=== PATIENT | female | born 1970 | race Caucasian/White ===

== ENCOUNTER 2016-08-11 08:45 | Inpatient (IN) | payer OTHER ==
[~2016-08-11] VITALS: Ht 172.7 cm; Wt 64.8 kg
[2016-08-11] VITALS (18 sets, daily range): BP systolic 82–1110; BP diastolic 47–86
--- NOTE | 2016-08-11 09:52 | DIAGNOSTIC IMAGING REPORT ---
PROCEDURE: XR CHEST 1 VIEW INDICATION: SHORTNESS OF BREATH TECHNIQUE: Portable AP view (). COMPARISON: None. FINDINGS: Left basilar rounded opacity suggestive of an artifact. 2.5 cm round opacity in the right cardiophrenic angle. Heart and mediastinum are normal. Thorax is normal. IMPRESSION: 1. 2.5 cm rounded opacity in the right lung base medially which may represent a pulmonary mass or infiltrate. 2. Left basilar opacity suggestive of an artifact.
--- NOTE | 2016-08-11 10:04 | ED ORDER SUMMARY ---
..... Patient: IRWIN DAMON OrderSheet [facility] VisitID: [id number] [address] [place] [address] 45y, F Registration Date/Time: 08/11/2016 ORDER SHEET Weight: 54.4 kg (stated) Allergies: No Known Drug Allergy GENERAL ORDERS: Chest 1V Urgent (09:08/11/2016 [facility] DO) (Ack 9:03 TBergley) (9:31 TBergley) Weld Engineer (Continuous) (:08/11/2016 [facility] DO) (Ack 9:03 TBergley) (9:19 LWhalen R.N.) UA-Culture if indicated Urgent (:08/11/2016 [facility]) (Ack 9:03 TBergley) (11:29 LWhalen R.N.) Cardiac Panel Stat (:08/11/2016 [facility]) (Ack 9:03 TBergley) (9:19 LWhalen R.N.) BNP Urgent (09:08/11/2016 [facility] DO) (Ack 9:03 TBergley) (9:19 LWhalen R.N.) Amylase Urgent (:08/11/2016 [facility]) (Ack 9:03 TBergley) (9:19 LWhalen R.N.) TSH Urgent (:08/11/2016 [facility]) (Ack 9:03 TBergley) (9:19 LWhalen R.N.) Urine Drug Screen Urgent (:08/11/2016 [facility] DO) (Ack 9:03 TBergley) (11:29 LWhalen R.N.) Urine Urgent (:08/11/2016 [facility] DO) (Ack 9:03 TBergley) (11:29 LWhalen R.N.) Acetaminophen Level Urgent (:08/11/2016 [facility]) (Ack 9:03 TBergley) (9:19 LWhalen R.N.) Salicylate Level Urgent (09:08/11/2016 [facility]) (Ack 9:03 TBergley) (9:19 LWhalen R.N.) Pulse oximeter (09:08/11/2016 [facility]) (Ack 9:03 TBergley) (9:19 LWhalen R.N.) EKG - ER Stat (09:08/11/2016 [facility]) (9:02 TBergley) Vitals (09:08/11/2016 [facility]) (Ack 9:03 TBergley) (9:19 LWhalen R.N.) Ethyl Alcohol Urgent (09:29 08/11/2016 [facility]) (Ack 9:31 TBergley) (9:57 LWhalen R.N.) Call (Place call to): (Dr Roe) (09:58 08/11/2016 [facility]) (10:00 TBergley) MEDICATION ORDERS: IV FLUIDS: IV NS : initial bolus 1000 mL (1000 mL/hr), then 500 mL/hr for X2 (NOW) (09:00 08/11/2016 [facility]) (Ack 9:19 LWhalen R.N.) (9:56 LWhalen R.N.) IV NS with Normal Saline 1 Liter, Folic Acid 1 mg/L, Multivitamin Concentrate Intravenous 1 amp/L, Thiamine HCl 100 mg/L: initial bolus 1000 mL (1000 mL/hr), then none - (NOW) (09:23 08/11/2016 [facility]) (9:57 LWhalen R.N.) ORDER SHEET NOTES: [Electronically signed by Justice Napoles DO (12:41 08/11/2016)] [Electronically signed by Fernando Lang R.N. (18:44 08/11/2016)] [Electronically locked/signed by Fernando Lang R.N. (18:44 08/11/2016)]
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
--- NOTE | 2016-08-11 10:04 | ED ORDER SUMMARY ---
..... Patient: IRWIN DAMON OrderSheet [facility] VisitID: [id number] [address] [place] [address] 45y, F Registration Date/Time: 08/11/2016 ORDER SHEET Weight: 54.4 kg (stated) Allergies: No Known Drug Allergy GENERAL ORDERS: Chest 1V Urgent (09:08/11/2016 [facility] DO) (Ack 9:03 TBergley) (9:31 TBergley) Strategies Analyst (Continuous) (:08/11/2016 [facility] DO) (Ack 9:03 TBergley) (9:19 LWhalen R.N.) UA-Culture if indicated Urgent (:08/11/2016 [facility]) (Ack 9:03 TBergley) (11:29 LWhalen R.N.) Cardiac Panel Stat (:08/11/2016 [facility]) (Ack 9:03 TBergley) (9:19 LWhalen R.N.) BNP Urgent (09:08/11/2016 [facility] DO) (Ack 9:03 TBergley) (9:19 LWhalen R.N.) Amylase Urgent (:08/11/2016 [facility] DO) (Ack 9:03 TBergley) (9:19 LWhalen R.N.) TSH Urgent (:08/11/2016 [facility] DO) (Ack 9:03 TBergley) (9:19 LWhalen R.N.) Urine Drug Screen Urgent (:08/11/2016 [facility] DO) (Ack 9:03 TBergley) (11:29 LWhalen R.N.) Urine Urgent (:08/11/2016 [facility] DO) (Ack 9:03 TBergley) (11:29 LWhalen R.N.) Acetaminophen Level Urgent (:08/11/2016 [facility] DO) (Ack 9:03 TBergley) (9:19 LWhalen R.N.) Salicylate Level Urgent (09:08/11/2016 [facility]) (Ack 9:03 TBergley) (9:19 LWhalen R.N.) Pulse oximeter (09:08/11/2016 [facility]) (Ack 9:03 TBergley) (9:19 LWhalen R.N.) EKG - ER Stat (09:08/11/2016 [facility]) (9:02 TBergley) Vitals (09:08/11/2016 [facility]) (Ack 9:03 TBergley) (9:19 LWhalen R.N.) Ethyl Alcohol Urgent (09:29 08/11/2016 [facility]) (Ack 9:31 TBergley) (9:57 LWhalen R.N.) Call (Place call to): (Dr Roe) (09:58 08/11/2016 [facility]) (10:00 TBergley) MEDICATION ORDERS: IV FLUIDS: IV NS : initial bolus 1000 mL (1000 mL/hr), then 500 mL/hr for X2 (NOW) (09:00 08/11/2016 [facility]) (Ack 9:19 LWhalen R.N.) (9:56 LWhalen R.N.) IV NS with Normal Saline 1 Liter, Folic Acid 1 mg/L, Multivitamin Concentrate Intravenous 1 amp/L, Thiamine HCl 100 mg/L: initial bolus 1000 mL (1000 mL/hr), then none - (NOW) (09:23 08/11/2016 [facility]) (9:57 LWhalen R.N.) ORDER SHEET NOTES: [Electronically signed by Justice Napoles DO (12:41 08/11/2016)] [Electronically signed by Fernando Lang R.N. (18:44 08/11/2016)] [Electronically locked/signed by Fernando Lang R.N. (18:44 08/11/2016)]
--- NOTE | 2016-08-11 10:04 | ED NURSING NOTES ---
Clinical Report - Nurses [facility] [address] [place] [address] 08/11/2016 8:44 Patient: IRWIN DAMON TRIAGE Triage time 08:55 Apr 2016. Acuity: LEVEL 2. Chief Complaint: DRUG OVERDOSE and SUICIDE ATTEMPT and INTOXICATION. AVELINA COMA SCORE: Avelina Coma Scale: 11- eyes open spontaneously (4); best verbal response- incoherent speech (2); best motor response- localizes to pain (5). --09:17 Fernando Lang R.N. 08:55 08/11/16. BP: 93/58. HR: 79. RR: 20. O2 saturation: 97%. Temp: 98.0 F. Pain level now 0/10. --09:17 Fernando Lang R.N. Weight: 54.4 kg stated. Height/Length: 67 inches Per Patient. BMI: 18.8. --09:11 Fernando Lang R.N. Medications QUEtiapine Fumarate Oral 50mg , daily. --09:14 Fernando Lang R.N. Amoxicillin Oral 500mg , tid . --09:15 Fernando Lang R.N. Doxycycline Hyclate Oral (Capsule 100 mg) 1 capsule. --09:15 Fernando Lang R.N. Gabapentin Oral 300 mg, daily. --09:16 Fernando Lang R.N. Melatonin Extra Strength Oral. --09:16 Fernando Lang R.N. Allergies No Known Drug Allergy. --18:44 Fernando Lang R.N. History Arrived by EMS, and from home. Historian: patient and family. This occurred last night. The patient had loss of consciousness. She has had depression and suicidal thoughts. Denies having hallucinations. No seizure or vomiting. Treatment MANAGER MONITORING: EMS treatment MANAGER MONITORING verbally communicated. Pulse oximeter applied. cardiac monitor technician applied. Pre-hospital 12-lead EKG. PAST MEDICAL HX: No history of diabetes mellitus or hypertension. No history of previous psychiatric treatment or previous suicide attempts. Last normal menstrual period- 2 weeks ago. SOCIAL HX: Current some days light tobacco smoker (cigarette)- less than 1/2 a pack per day. Heavy alcohol use. Patient is a longstanding alcoholic. Patient smells of ETOH in the emergency department. SELF HARM ASSESSMENT: A self harm assessment was performed. The patient answered "yes" to the question "Have you recently felt down, depressed, or hopeless?", "Have you noticed less interest or pleasure in doing things?", "Do you have thoughts of harming or killing yourself?" and "Are you here because you tried to hurt yourself?" and "no" to the question "Have you ever tried to hurt yourself before today?", "Have you recently had thoughts about harming or killing others?" and "Do you have any dangerous items in your possession?". FALL RISK ASSESSMENT: Fall risk assessment completed. No fall risk identified. NUTRITIONAL RISK ASSESSMENT: The nutritional risk assessment revealed no deficiencies. FUNCTIONAL ASSESSMENT: Functional assessment: no impairments noted. LEARNING NEEDS ASSESSMENT: The learning needs assessment revealed no barriers. ABUSE ASSESSMENT: Abuse assessment: (yes) The patient was asked "Do you feel safe in your home?". SKIN INTEGRITY ASSESSMENT: Skin integrity risk assessment completed. No skin integrity risk identified. --:17 Fernando Lang R.N. PROBLEMS: Abnormal Liver Function Test. Substance Abuse. Immunizations. --:17 Fernando Lang R.N. ADDITIONAL SURGERIES: . --:17 Fernando Lang R.N. Interventions ID band on patient. --:17 Fernando Lang R.N. PHYSICAL ASSESSMENT To room via stretcher. GENERAL / NEURO / PSYCH: Alert. Appears in no acute distress. Patient smells of alcohol. The patient is disoriented to person and time. Altered mental status: lethargic. Patient slow to respond. Responds to simple questions and commands. RESPIRATORY: Respirations not labored. Breath sounds within normal limits. CVS: Normal sinus rhythm noted. Capillary refill less than 2 seconds. GI / : Abdomen soft and nontender. Bowel sounds within normal limits. SKIN: Skin intact. Skin is warm and dry. Skin color is within normal limits. --:18 Fernando Lang R.N. NURSING PROGRESS NOTES Reassurance given. Suicide precautions initiated: a safety sweep of the room is ongoing. Room made safe. Continuous one on one supervision, checks performed every 15 minutes, clothing / valuables removed and placed with the family, meds removed and placed with the family. Patient placed in direct sight of the nurse's station. Call light placed in reach. Side rails up x 2. Bed placed in lowest position. Brakes of bed on. --09:19 Fernando Lang R.N. EKG time: (0900). EKG was ordered, performed by a tech and shown to the ED physician. --09:29 Jade Ace 08:45 08/11/2016 Site #1 started prior to arrival by EMS via IV in the right antecubital space with an 18g angiocath, with aseptic technique and good blood return; one attempt. Saline lock flushed with 10 mL saline. --09:56 Fernando Lang R.N. 08:50 08/11/2016 Started bag #1 1000 mL IV Fluids IV NS (Saline); at 999 mL/hr over 1 hour(s) via site #2 via IV pump. Allergies verified and confirmed 5 rights. IV patency established. IV site checked: no pain, redness, or swelling. IV flushed thoroughly pre- and post-medication administration. --09:56 Fernando Lang R.N. 08:56 08/11/2016 Site #2 started via IV in the left wrist with an 20g angiocath, with aseptic technique and good blood return; one attempt. Blood drawn: rainbow set. Labeled in the presence of the patient and sent to the lab. Saline lock flushed with 10 mL saline. --09:56 Fernando Lang R.N. 09:57 08/11/2016 Started bag #1 1000 mL IV Fluids IV NS (Saline); at 1000 mL/hr over 1 hour(s) via site #2 via IV pump. Allergies verified and confirmed 5 rights. IV patency established. IV site checked: no pain, redness, or swelling. IV flushed thoroughly pre- and post-medication administration. --09:57 Fernando Lang R.N. 09:57 08/11/2016 IV Fluids IV NS Discontinued: bag #1 infused. Total amount infused: 1000 mL. IV patency established. IV site checked: no pain, redness, or swelling. IV flushed thoroughly. --09:57 Fernando Lang R.N. 09:55 08/11/16. BP: 85/58. HR: 75. RR: 14. O2 saturation: 97%. 09:40 08/11/16. BP: 85/58. HR: 74. RR: 15. O2 saturation: 96%. 09:25 08/11/16. BP: 84/58. HR: 76. RR: 17. O2 saturation: 96%. 09:15 08/11/16. BP: 86/60. HR: 78. RR: 27. O2 saturation: 97%. 09:10 08/11/16. BP: 87/57. HR: 75. RR: 16. O2 saturation: 95%. End tidal CO2: 40 mmHg. 08:55 08/11/16. BP: 93/58. HR: 79. RR: 20. O2 saturation: 97%. Temp: 98.0 F. Pain level now 0/10. --10:53 Fernando Lang R.N. 10:10 08/11/16. BP: 84/55. HR: 76. RR: 14. O2 saturation: 96%. --11:15 Fernando Lang R.N. 10:45 08/11/16. BP: 83/57. HR: 86. RR: 18. O2 saturation: 98%. 10:35 08/11/16. BP: 76/54. HR: 87. RR: 18. O2 saturation: 97%. 10:25 08/11/16. BP: 84/58. HR: 78. RR: 18. O2 saturation: 98%. --11:27 Fernando Lang R.N. 11:00 08/11/16. ( report given and patient transferred to ICU.). --11:28 Fernando Lang R.N. DISPOSITION / DISCHARGE Admitted to the Critical Care Unit (306). --11:28 Fernando Lang R.N. 11:03 08/11/2016 Site #[address] upon transfer. Good blood return present. --11:28 Fernando Lang R.N. 11:03 08/11/2016 Site #[address] upon transfer; patent. --11:28 Fernando Lang R.N. 11:03 08/11/2016 IV Fluids IV NS Discontinued: bag #1 infused. Total amount infused: 1000 mL. IV patency established. IV site checked: no pain, redness, or swelling. IV flushed thoroughly. --11:29 Fernando Lang R.N. Departure time: 11:00 Aug 11 2016. --11:29 Fernando Lang R.N. 10:45 08/11/16. BP: 83/57. HR: 86. RR: 18. O2 saturation: 98%. --18:44 Fernando Lang R.N. Locked/Released at 08/11/2016 18:44 by Fernando Lang R.N.
--- NOTE | 2016-08-11 10:04 | ED CLINICAL REPORT ---
Clinical Report - Physicians/Mid Levels [facility] [address] [place] [place] [address] 08/11/2016 8:44 Patient: IRWIN DAMON Time Seen: 08:59. Arrived- By ambulance. Historian- patient, EMS personnel and family. HISTORY OF PRESENT ILLNESS Chief Complaint: DRUG OVERDOSE. This occurred last night. Toxic symptoms present in ED with drowsiness. Multiple drugs ingested- Alcohol- Seroquel. The patient has experienced situational problems. Alcohol consumption recently. The symptoms are described as moderate. Has had suicidal thoughts. No hallucinations. (Pt is currently residing with her parents (after moving back to the area from [place]). She was found by her mother with a decreased level of consciousness. She admits to taking multiple seroquel and drinking alcohol last night in an attempt to commit suicide). Similar symptoms previously: Recent medical care: Not recently seen/assessed. REVIEW OF SYSTEMS Last normal menstrual period was 2 weeks ago. No headache, weakness, chest pain, palpitations or abdominal pain. No vomiting, diarrhea, black stools, numbness or bloody stools. No fever, sore throat, cough, difficulty breathing or difficulty with urination. No skin rash or joint pain. All systems otherwise negative, except as recorded above. PAST HISTORY Psychiatric illness. Substance abuse (alcohol). Surgeries: . SOCIAL HISTORY Smoker- current status unknown. Regular heavy alcohol use. Patient is a longstanding alcoholic. Residence: recently moved (?back) to the area from [place] Is a local resident. Has social support. Has place to stay. states was "kicked out" of her boyfriend's house in [place] due to her alcohol use. ADDITIONAL NOTES The nursing notes have been reviewed. PHYSICAL EXAM Vital Signs: 08/11/2016 08:55 BP: 93/58. HR: 79. RR: 20. O2 saturation: 97%. Temp: 98.0 F. Appearance: Lethargic. Appears depressed. Head: No tenderness or ecchymosis. Eyes: Pupils equal, round and reactive to light. No nystagmus. Extraocular movements normal. ENT: Normal ENT inspection. TM's normal. Pharynx normal. No depression of the gag reflex. No trouble handling secretions or pharyngeal erythema. Neck: Trachea is not deviated. Normal inspection. Neck supple and nontender. Full ROM. Neck supple. No meningeal signs, carotid bruit, decreased ROM or muscle spasm in the neck or soft tissue tenderness. No JVD. No pain with movement of head/neck. No vertebral tenderness. CVS: Normal heart rate and rhythm. Heart sounds normal. Pulses normal. Respiratory: No respiratory distress. Breath sounds normal. Abdomen: Soft and nontender. Back: Normal inspection. Skin: No cyanosis. Skin warm and dry. Normal skin color. No rash. Normal skin turgor. Skin not cool on palpation. No pallor or diaphoresis. Extremities: Extremities exhibit normal ROM. No lower extremity edema. Neuro: Oriented X 3. Abnormal mood/affect or speech. Cranial nerves normal (as tested). No motor deficit. No sensory deficit. Reflex exam: right biceps 1+, left biceps 1+, right patellar 1+, left patellar 1+, right Achilles 1+ and left Achilles 1+. LABS, X-RAYS, AND EKG EKG: EKG time: (09:00). Normal sinus rhythm. Rate: 80. Normal P waves. Normal CHRIST. Normal QRS complex. Normal axis. Normal ST and T waves. The study has been interpreted contemporaneously by me. The EKG appears to be a good tracing. Rhythm Strip #1: Normal sinus rhythm. Regular rhythm. Narrow QRS complexes. No ectopy. Chest X-ray: (IMPRESSION: 1. 2.5 cm rounded opacity in the right lung base medially which may represent a pulmonary mass or infiltrate. 2. Left basilar opacity suggestive of an artifact.). Views: AP (portable). Technique: good. The X-rays were independently viewed by me and interpreted by the radiologist. Laboratory Tests: UA-Culture if indicated: (DANIEL: 08/11/2016 10:35) ( MsgRcvd 08/11/2016 10:49) Final results Test Result Flag Units (Reference) URINE COLOR STRAW URINE APPEARANCE CLEAR URINE GLUCOSE NEGATIVE (NEGATIVE) URINE BILIRUBIN NEGATIVE (NEGATIVE) URINE KETONE NEGATIVE (NEGATIVE) URINE SPECIFIC GRAVITY <= 1.005 L (1.010-1.030) URINE PH 5.5 (5.0-8.0) URINE PROTEIN NEGATIVE (NEGATIVE) URINE UROBILINOGEN 0.2 EU/dL (0.2-1.0) URINE NITRITE NEGATIVE (NEGATIVE) URINE BLOOD NEGATIVE (NEGATIVE) URINE LEUK ESTERASE TRACE (NEGATIVE) URINE RBC NONE SEEN rbc/hpf (0-1) URINE WBC 1-3 wbc/hpf (0-1) URINE EPITHELIAL CELLS 0-1 EPI/hpf (0-5) URINE BACTERIA TRACE (<1+) (NONE SEEN) URINE COMMENT CULTURE INDICATED URINE CULTURES ARE SET-UP BASED ON THE FOLLOWING CRITERIA:POSITIVE NITRITEPOSITIVE LEUKOCYTE ESTERASEGREATER THAN 10 WHITE BLOOD CELLSMODERATE (2+) OR GREATER BACTERIA Urine: (DANIEL: 08/11/2016 10:35) ( [facility] [place]11[place] 10:44) Final results Test Result Flag Units (Reference) URINE NEGATIVE CBC w Diff: (DANIEL: 08/11/2016 09:05) ( [facility] [place] 08/11/2016 09:20) Final results Test Result Flag Units (Reference) WHITE BLOOD COUNT 13.4 H K/uL (4.5-11.5) RED BLOOD COUNT 3.26 L M/uL (4.00-5.20) HEMOGLOBIN 11.3 L gm/dL (12.0-16.0) HEMATOCRIT 33.4 L % (36.0-46.0) MEAN CELL VOLUME 103 H fL (80-100) MEAN CORPUSCULAR HGB 35 H pg (26-34) MEAN CORPUSCULAR HGB CONC 34 g/dL (31-37) RED CELL DISTRIBUTION WIDTH 14.4 % (11.6-14.8) PLATELET COUNT 694 H K/uL (150-400) NEUTROPHIL % 61.2 % (50-75) LYMPH % 27.9 % (25-40) MONO % 9.7 % (3-14) EOSINOPHIL % 0.7 % (0-4) BASOPHIL % 0.5 % (0-2) Ethyl Alcohol: (DANIEL: 08/11/2016 09:05) ( [facility] 08/11/2016 09:49) Final results Test Result Flag Units (Reference) ETHYL ALCOHOL 448 H mg/dL (3-10) Salicylate Level: (DANIEL: 08/11/2016 09:05) ( MsgRcvd 08/11/2016 09:31) Final results Test Result Flag Units (Reference) SALICYLATE 2.9 mg/dL (2.8-20) Urine Drug Screen: (DANIEL: 08/11/2016 10:35) ( NdgRcvd 08/11/2016 11:09) Final results Test Result Flag Units (Reference) AMPHETAMINE/METHAMPHETAMINE NEGATIVE (NEGATIVE) BARBITURATE NEGATIVE (NEGATIVE) BENZODIAZEPINE POSITIVE H (NEGATIVE) CANNABINOID NEGATIVE (NEGATIVE) COCAINE NEGATIVE (NEGATIVE) ECSTASY NEGATIVE (NEGATIVE) METHADONE NEGATIVE (NEGATIVE) OPIATE NEGATIVE (NEGATIVE) The urine drug screen is a qualitative screening test fordrug overdose and abuse. All screen results should beconsidered as presumptive.Drugs screened for are as follows:BenzodiazepinesCocaineAmphetamines/MetamphetaminesTHC (Tetrahydrocannabinol)OpiatesBarbituratesEcstasyMethadonePositive results are unconfirmed. For confirmation, notifythe lab for the specimen to be sent to the reference lab.All confirmations must be performed by a differentmethodology.The ingestion of natural herbal and plant productscontaining Ephedra/Ephedra metabolites can produce in urineone or more substances capable of cross reacting withamphetamine/methamphetamine immunoassays. These testsprovide a preliminary result only. A more specificalternative chemical method must be used to obtain aconfirmed analytical result. BNP: (DANIEL: 08/11/2016 09:05) ( MsgRcvd 08/11/2016 09:39) Final results Test Result Flag Units (Reference) B-TYPE NATRIURETIC PEPTIDE 26.2 pg/ml (5-100) CHEM 13 PANEL: (DANIEL: 08/11/2016 09:05) ( NdgRcvd 08/11/2016 10:14) Final results Test Result Flag Units (Reference) GLUCOSE 110 mg/dL (70-110) BUN 6 L mg/dL (7-18) CREATININE 0.4 L mg/dL (0.6-1.3) Estimated GFR >60 mL/min Estimated GFR- >60 mL/min Note: Persistent reduction over 3 months in eGFR<60 mL/min/1.73 m2 defines CKD. Patients with eGFR values>=60 mL/min/1.73 m2 may also have CKD if evidence ofpersistent proteinuria. Additional information may be foundat [email or web address].org. SODIUM 141 mmol/L (136-145) POTASSIUM 4.0 mmol/L (3.5-5.1) CHLORIDE 105 mmol/L (98-107) CARBON DIOXIDE 28 mmol/L (21-32) CALCIUM 8.4 L mg/dL (8.5-10.1) TOTAL PROTEIN 6.6 g/dL (6.4-8.2) ALBUMIN 2.6 L g/dL (3.3-5.0) BILIRUBIN, TOTAL 0.1 mg/dL (0.0-1.0) ALKALINE PHOSPHATASE 63 U/L (46-116) AST (SGOT) 18 U/L (15-37) ALT (SGPT) 13 U/L (12-78) CPK 49 U/L (24-260) MAGNESIUM 2.2 mg/dL (1.8-2.4) AMYLASE 54 U/L (25-115) TROPONIN I <0.05 L ng/mL (0.00-1.5) TROPONIN REFERENCE RANGE:<0.1 NEGATIVE0.1-1.5 INDETERMINANT>1.5 POSITIVE THYROID STIMULATING HORMONE 3.367 uIU/mL (0.34-3.74) ACETAMINOPHEN < 2.0 L ug/mL (10-30) . Pulse Oximetry: 08/11/2016 08:55 O2 saturation: 97%. (FIO2 - room air). Interpretation: normal. PROGRESS AND PROCEDURES Course of Care: Normal Saline 1 L NS then 1 L NS with thiamine 100mg + folate 1mg + 1 amp MVI IVPB given. Chest X-Ray finding d/w Dr Roe - will obtain PA / lat when stable. Discussed case with hospitalist, (Bhupinder 10:10). Reviewed test results. Agreed upon treatment plan. Health care provider will see patient in ED. Patient/family counseled. Old ED records reviewed. Transition orders written. Disposition: Admitted to the Critical Care Unit. Condition: guarded. CLINICAL IMPRESSION Intentional single drug overdose. Suicide attempt. Alcohol intoxication with alcohol dependence. No alcohol intoxication with delirium. Complicated alcohol intoxication. 1. 2.5 cm rounded opacity in the right lung base medially which may represent a pulmonary mass or infiltrate. 2. Left basilar opacity suggestive of an artifact. Doubt UTI. (Electronically signed by Justice Napoles DO 08/11/2016 12:41)
[2016-08-11] MEDS ORDERED: SEROQUEL25 MG PO (11:18)
[2016-08-11] MEDS ORDERED: GABAPENTIN300 MG PO (11:18)
[2016-08-11] MEDS ORDERED: MELATONIN1 MG PO (11:19)
[2016-08-11] MEDS ORDERED: DOXYCYCLINE100 MG PO (11:19)
[2016-08-11] MEDS ORDERED: AMOXICILLIN250 MG PO (11:20)
--- NOTE | 2016-08-11 18:05 | History & Physical Report ---
Information Source Information Source: Self, Parent Reliability: Fair History Chief Complaint drug overdose History of Present Illness Patient is a 45 year old female with a history of alcohol abuse that is presenting with an overdose of alcohol and seroquel. Patient had recently been ejected from her boyfriends house for continually drinking and being intoxicated around her daughter. She left [place] and came to live with her mohter in [place]. Patient upon arriving was placed in alcohol detox and left after 3 days. Since then as per the mothers knowledge she has been sober however recently the mother has been finding more and more evidence that the patient has been surepticiously drinking. Yesterday while the mother was in the shower, the mother heard a large bang and the patient was found on the floor with an empty pill bottle on the counter. Patient was not responsive and to touch or voice. It was at this point where the mother called ems. Patient was brought to the ER where she had evidence of a high alcohol level and was not responsive. Patient otherwise is hemodynamically stable. Patient History 1. SEROQUEL OVERDOSE 2. ALCOHOL INTOXICATION Social History Patient has a long standing history of alcohol abuse. Patient does not work. Has a that of AML, and has currently has a five year old daughter with another man who she is estranged from. Medications and Allergies Medications Home Medications Melatonin Seroquel 25 mg daily Gabapentin 100 mg tid Current Medications Sig/Chary Start time Last Medication Dose Route Stop Time Status Admin Zolpidem Tartrate 5 MG QHS 08/11 2100 AC PO Lorazepam See Dose Q2H PRN 08/11 1800 AC 08/11 Insts (1) IV 1811 Acetaminophen 650 MG Q4H PRN 08/11 1430 AC PO Sodium Chloride 1,000 ML ASDIRECTED 08/11 1430 AC IV Sodium Chloride 1,000 ML ASDIRECTED 08/11 1015 AC 08/11 IV 1145 Dose Instructions: (1)Lorazepam: 1 - 2 MG Allergies Coded Allergies: NKA (08/11/16) Review of Systems Constitutional Denies: Fever, Chills, Sweats, Weakness, Malaise, Other. Eyes Denies: Pain, Vision Change, Conjunctival Inflammation, Eyelid Inflammation, Redness, Other. Respiratory Denies: Cough, Dry, SOB w/exertion, Wheezing, Hemoptysis, Pleuritic Pain, Sputum , Other. Cardiovascular Denies: Chest Pain, Palpitations, Orthopnea, PND, Edema, Light-headedness, Other. Gastrointestinal Denies: Nausea, Vomiting, Abdominal Pain, Diarrhea, Constipation, Melena, Hematochezia, Other. Genitourinary Denies: Dysuria, Frequency, Incontinence, Hematuria, Retention, Other. Musculoskeletal Denies: Neck Pain, Shoulder Pain, Arm Pain, Back Pain, Hand Pain, Leg Pain, Foot Pain, Other. Skin Denies: Rash, Lesions, Jaundice, Bruising, Other. Neurological Confusion. Denies: Weakness, Numbness, Incoordination, Change in speech, Seizures, Other. Physical Exam Vital Signs / I&Os Vital Signs Date Time Temp Pulse Resp B/P Pulse O2 O2 Flow FiO2 Ox Delivery Rate 08/11 1810 102 28 115/77 100 Room Air 08/11 1711 99.0 117 17 103/63 98 Room Air 08/11 1614 114 22 102/60 96 Room Air 08/11 1559 98.1 119 20 97/54 96 08/11 1549 118 14 97/54 97 Room Air 08/11 1510 108 16 94/62 99 Room Air 08/11 1409 98.1 107 18 94/59 99 Room Air 08/11 1340 99 16 90/52 98 Room Air 0.0 08/11 1310 97 31 91/47 99 Room Air 08/11 1210 96 18 84/62 100 Room Air 0.0 08/11 1144 82 19 82/50 99 Room Air 08/11 1113 97.7 75 15 85/54 97 Room Air 0.0 08/11 1110 97.7 76 13 86/56 97 Room Air 0.0 General Appearance Alert, Oriented X3, No acute distress HEENT Atraumatic, PERRLA, Moist mucous membranes Lungs Clear to auscultation, Normal air movement Neck Supple, No JVD, No masses Cardiovascular Regular rate and rhythm, Normal S1 and S2, No murmurs, gallops, rubs Abdomen Soft, No tenderness Extremities No edema, Normal pulses, No tenderness Skin No Breakdown, No Significant Lesions Neurological Normal gait, Normal speech, Sensation intact, Cranial nerves intact , No lateralizing signs Psych/Mental Status Mood normal LAB Results Laboratory Tests 08/11 08/11 08/11 08/11 08/11 0901 0901 0905 0905 0905 Chemistry Plasma Sodium (136 - 145 mmol/L) 141 Plasma Potassium (3.5 - 5.1 mmol/L) 4.0 Plasma Chloride (98 - 107 mmol/L) 105 CO2 (Enzymatic) (21 - 32 mmol/L) 28 BUN (7 - 18 mg/dL) 6 Creatinine (0.6 - 1.3 mg/dL) 0.4 Est GFR ( Amer) (mL/min) >60 Est GFR (Non-Af Amer) (mL/min) >60 Glucose (70 - 110 mg/dL) 110 Plasma Calcium (8.5 - 10.1 mg/dL) 8.4 Plasma Magnesium (1.8 - 2.4 mg/dL) 2.2 Total Bilirubin (0.0 - 1.0 mg/dL) 0.1 AST (15 - 37 U/L) 18 ALT (12 - 78 U/L) 13 Alkaline Phosphatase (46 - 116 U/L) 63 Creatine Kinase (24 - 260 U/L) 49 Troponin (0.00 - 1.5 ng/mL) <0.05 B-Natriuretic Peptide (5 - 100 pg/ml) 26.2 Total Protein (6.4 - 8.2 g/dL) 6.6 Albumin (3.3 - 5.0 g/dL) 2.6 Amylase (25 - 115 U/L) Cancelled 54 TSH 3rd Generation (0.34 - 3.74 uIU/mL) Cancelled 3.367 Hematology WBC (4.5 - 11.5 K/uL) 13.4 RBC (4.00 - 5.20 M/uL) 3.26 Hgb (12.0 - 16.0 gm/dL) 11.3 Hct (36.0 - 46.0 %) 33.4 MCV (80 - 100 fL) 103 MCH (26 - 34 pg) 35 RDW (11.6 - 14.8 %) 14.4 Neut % (Auto) (50 - 75 %) 61.2 Lymph % (Auto) (25 - 40 %) 27.9 [place] % (Auto) (3 - 14 %) 9.7 Eos % (Auto) (0 - 4 %) 0.7 Baso % (Auto) (0 - 2 %) 0.5 Plt Count, EDTA (150 - 400 K/uL) 694 PUBS MCHC (31 - 37 g/dL) 34 Toxicology Salicylates (2.8 - 20 mg/dL) Cancelled 2.9 Acetaminophen (10 - 30 ug/mL) Cancelled < 2.0 Plasma/Serum Ethyl Alc (3 - 10 mg/dL) 448 08/11 08/11 1035 1035 Toxicology Urine Opiates Screen (NEGATIVE) NEGATIVE Urine Methadone Screen (NEGATIVE) NEGATIVE Ur Barbiturates Screen (NEGATIVE) NEGATIVE U Amphetamin/Meth Scrn (NEGATIVE) NEGATIVE MDMA (Ecstasy) Screen (NEGATIVE) NEGATIVE U Benzodiazepines Scrn (NEGATIVE) POSITIVE Urine Cocaine Screen (NEGATIVE) NEGATIVE U Cannabinoids Screen (NEGATIVE) NEGATIVE Urines Urine Color STRAW Urine Appearance CLEAR Urine pH (5.0 - 8.0) 5.5 Ur Specific [place] (1.010 - 1.030) <= 1.005 Urine Protein (NEGATIVE) NEGATIVE Urine Ketones (NEGATIVE) NEGATIVE Urine Blood (NEGATIVE) NEGATIVE Urine Nitrite (NEGATIVE) NEGATIVE Urine Bilirubin (NEGATIVE) NEGATIVE Urine Urobilinogen (0.2 - 1.0 EU/dL) 0.2 Ur Leukocyte Esterase (NEGATIVE) TRACE Urine RBC (0 - 1 rbc/hpf) NONE SEEN Urine WBC (0 - 1 wbc/hpf) 1-3 Ur Epithelial Cells (0 - 5 EPI/hpf) 0-1 Urine Bacteria (NONE SEEN) TRACE (<1+) Urine Glucose (NEGATIVE) NEGATIVE Urine Test NEGATIVE Urine Comment CULTURE INDICATED Microbiology Date/Time Procedure - Status Source Growth 08/11 121 MRSA Screen - RECD NASAL 08/11 103 Urine Culture - RECD URINE CC Assessment and Plan Problem List 1. SUICIDE ATTEMPT Plan - pt attempted suicide with seroquel and alcohol use - pt denies it and is looking for reasons to leave the hospital - pt 2. SEROQUEL OVERDOSE Plan - will monitor patient on telemetry - initial EKG shows no evidence of QT prolongation - will continue to watch and monitor electrolytes
--- NOTE | 2016-08-11 18:45 | ED MED RECONCILIATION SUMMARY ---
Patient: IRWIN DAMON Medication Reconciliation Report [facility] VisitID: [id number] [address] [place] [address] 45y, F Registration Date/Time: 08/11/2016 Weight: 54.4 kg Height/Length: 67 in. BMI: 18.8 ALLERGIES: No Known Drug Allergy The patient's Home Medications are listed below: THE FOLLOWING MEDICATIONS NEED TO BE RECONCILED: Amoxicillin Oral 500mg , tid Doxycycline Hyclate Oral (100 mg) 1 capsule Gabapentin Oral 300 mg, daily Melatonin Extra Strength Oral QUEtiapine Fumarate Oral 50mg , daily The source(s) of the original Home Medication information: Not obtained. The following Medications were given to the patient in the Emergency Department: IV NS IV Fluids bolus 0, then 999 mL/hr, administered: 08/11/2016 8:50:00 AM IV NS IV Fluids bolus 0, then 1000 mL/hr, administered: 08/11/2016 9:57:00 AM The following Medications were prescribed to the patient: None.
--- NOTE | 2016-08-11 18:45 | ED MAR SUMMARY ---
..... Medication Administration Record [facility] [address] [place] [address] Patient: IRWIN DAMON Visit ID: [id number] 45y, F Weight: 54.4 kg Height/Length: 67 in BMI: 18.8 ALLERGIES: No Known Drug Allergy Start 08:50 08/11/2016 Fernando Lang R.N., Stop 09:57 08/11/2016 Fernando Lang R.N. Medication Administered: IV NS (SALINE), Dose: IV Fluids over 1 hour(s), Rate: 999 mL/hr, Dispensed: 1000 mL bag, Site: #2. Medication Ordered: IV NS : initial bolus 1000 mL (1000 mL/hr), then 500 mL/hr for X2 (NOW). Start 09:57 08/11/2016 Fernando Lang R.N., Stop 11:03 08/11/2016 Fernando Lang, RGeorgeN. Medication Administered: IV NS (SALINE), Dose: IV Fluids over 1 hour(s), Rate: 1000 mL/hr, Dispensed: 1000 mL bag, Site: #2 left wrist. Medication Ordered: IV NS with Normal Saline 1 Liter, Folic Acid 1 mg/L, Multivitamin Concentrate Intravenous 1 amp/L, Thiamine HCl 100 mg/L: initial bolus 1000 mL (1000 mL/hr), then none - (NOW).
--- NOTE | 2016-08-11 18:45 | ED MAR SUMMARY ---
..... Medication Administration Record [facility] [address] [place] [address] Patient: IRWIN DAMON Visit ID: [id number] 45y, F Weight: 54.4 kg Height/Length: 67 in BMI: 18.8 ALLERGIES: No Known Drug Allergy Start 08:50 08/11/2016 Fernando Lang R.N., Stop 09:57 08/11/2016 Fernando Lang R.N. Medication Administered: IV NS (SALINE), Dose: IV Fluids over 1 hour(s), Rate: 999 mL/hr, Dispensed: 1000 mL bag, Site: #2. Medication Ordered: IV NS : initial bolus 1000 mL (1000 mL/hr), then 500 mL/hr for X2 (NOW). Start 09:57 08/11/2016 Fernando Lang R.N., Stop 11:03 08/11/2016 Fernando Lang, RGeorgeN. Medication Administered: IV NS (SALINE), Dose: IV Fluids over 1 hour(s), Rate: 1000 mL/hr, Dispensed: 1000 mL bag, Site: #2 left wrist. Medication Ordered: IV NS with Normal Saline 1 Liter, Folic Acid 1 mg/L, Multivitamin Concentrate Intravenous 1 amp/L, Thiamine HCl 100 mg/L: initial bolus 1000 mL (1000 mL/hr), then none - (NOW).
--- NOTE | 2016-08-11 18:45 | ED DISCHARGE INSTRUCTIONS ---
Patient: IRWIN DAMON General Instructions [facility] VisitID: [id number] [address] [place] [address] 45y, F Registration Date/Time: 08/11/2016 Intentional single drug overdose. Suicide attempt. Alcohol intoxication with alcohol dependence. No alcohol intoxication with delirium. Complicated alcohol intoxication. 1. 2.5 cm rounded opacity in the right lung base medially which may represent a pulmonary mass or infiltrate. 2. Left basilar opacity suggestive of an artifact. Doubt UTI. ADDITIONAL INFORMATION Overdose, Intentional (Adult: Psych Evaluation) You have been evaluated and treated for taking a drug or chemical product with the intent to harm yourself. There is no sign of a toxic effect at this time. It is not likely that any new symptoms will appear. As a safeguard, watch for new symptoms during the next 24 hours (see below). The exact symptom will depend on the type of drug or chemical taken. An intentional overdose is likely to be a sign that you are depressed, or that you are very angry with yourself or someone else. In order to reduce the risk of harming yourself, we will arrange for you to have a psychiatric evaluation. Home Care: If LIQUID CHARCOAL was given to neutralize what was swallowed, it will cause a black color to the stools for 1-2 days. Usually, a laxative (sorbitol) is given with charcoal to speed the removal of any toxins from the intestinal tract. This may cause diarrhea for up to 24 hours. If no laxative was given with charcoal, you may get constipated. If this occurs, you may take an spkz-gvs-hqryorh laxative such as Dulcolax pills or suppository. Follow Up with your doctor if all symptoms do not resolve within 24 hours or if constipation is not relieved by one or two doses of laxatives. If you are being discharged for immediate evaluation at a psychiatric hospital or clinic on a voluntary basis, you must go directly there with a responsible adult. If you have been placed on a legal 72 hour psychiatric hold, a ride to a psychiatric facility will be arranged for you. Get Prompt Medical Attention if any of the following occur: Excess drowsiness or inability to be awakened Rapid heart beat, you feel shaky, or you have a seizure Fast breathing (over 25 breaths/minute) or slow breathing (less than 8 breaths/minute) Feeling shortness of breath Fever of 100.4F (38C) or higher, or as directed by your healthcare provider Vomiting or diarrhea for more than 24 hours Blood in stools or vomit (black or red color) Chest or abdominal pain Dizziness, weakness or fainting Thoughts of harming yourself again Alcohol Overdose You have overdosed on alcohol. This means you drank a large amount of alcohol in a short period of time.An alcohol overdose is a serious condition. It can cause coma and even ! It puts you at risk for vomiting and aspiration (when the vomit is breathed into your lungs!). Aspiration causes a severe pneumonia that can be fatal. An alcohol overdose can be a result of not understanding the powerful effects of alcohol. But it can also be a sign of depression or excessive anger at yourself or another person. If you feel that there are emotional reasons for this overdose, we advise that you have an evaluation by a psychiatrist, counselor or therapist. Home Care: Do not drink any more alcohol. DO NOT DRIVE until all effects of the alcohol have worn off. Get lots of rest over the next few days and drink lots of water and other non-alcoholic liquids. Try to eat regular meals. If you have been drinking heavily on a daily basis, you may go through ALCOHOL WITHDRAWAL, also called the shakes or DTs. The usual symptoms last 3-4 days and may include nausea, sweating, sleeplessness, nervousness, shakiness or seizure. During this time, it is best that you stay with family or friends who can help and support you. You can also admit yourself to a residential detox program. Heavy regular drinking combined with poor nutrition can lead to a thiamine deficiency and cause permanent brain damage.If you are unable to stop drinking, it is important that you take daily vitamins. Follow Up: If alcohol is causing a problem in your life, the following organizations are available to help: Alcoholics Anonymous offers support through a self-help fellowship.There are no dues or fees. See the Yellow Pages and call for time and place of meetings. www.aa.org [employer] offers support to families of alcohol users.042-632-1202yaw.al-anon.org National [place] on Alcoholism and Drug Dependencewww.ncadd.ezt939-431- 1653 Residential alcohol detox programs are available. Check the Yellow Pages under Drug Abuse & Treatment Centers. Return Promptly or contact your doctor if any of the following occur: Severe shakiness or seizure (convulsion) Fever over 100.4 F (38C) Confusion or hallucinations (seeing, hearing or feeling things that aren't there) Increasing upper abdominal pain Repeated vomiting or vomiting blood You have been given the following additional information: Overdose, Intentional (Adult) Alcohol Overdose (Electronically signed by Justice Napoles DO 08/11/2016 12:41)
--- NOTE | 2016-08-11 18:45 | ED MED RECONCILIATION SUMMARY ---
Patient: IRWIN DAMON Medication Reconciliation Report [facility] VisitID: [id number] [address] [place] [address] 45y, F Registration Date/Time: 08/11/2016 Weight: 54.4 kg Height/Length: 67 in. BMI: 18.8 ALLERGIES: No Known Drug Allergy The patient's Home Medications are listed below: THE FOLLOWING MEDICATIONS NEED TO BE RECONCILED: Amoxicillin Oral 500mg , tid Doxycycline Hyclate Oral (100 mg) 1 capsule Gabapentin Oral 300 mg, daily Melatonin Extra Strength Oral QUEtiapine Fumarate Oral 50mg , daily The source(s) of the original Home Medication information: Not obtained. The following Medications were given to the patient in the Emergency Department: IV NS IV Fluids bolus 0, then 999 mL/hr, administered: 08/11/2016 8:50:00 AM IV NS IV Fluids bolus 0, then 1000 mL/hr, administered: 08/11/2016 9:57:00 AM The following Medications were prescribed to the patient: None.
--- NOTE | 2016-08-11 18:45 | ED DISCHARGE INSTRUCTIONS ---
Patient: IRWIN DAMON General Instructions [facility] VisitID: [id number] [address] [place] [address] 45y, F Registration Date/Time: 08/11/2016 Intentional single drug overdose. Suicide attempt. Alcohol intoxication with alcohol dependence. No alcohol intoxication with delirium. Complicated alcohol intoxication. 1. 2.5 cm rounded opacity in the right lung base medially which may represent a pulmonary mass or infiltrate. 2. Left basilar opacity suggestive of an artifact. Doubt UTI. ADDITIONAL INFORMATION Overdose, Intentional (Adult: Psych Evaluation) You have been evaluated and treated for taking a drug or chemical product with the intent to harm yourself. There is no sign of a toxic effect at this time. It is not likely that any new symptoms will appear. As a safeguard, watch for new symptoms during the next 24 hours (see below). The exact symptom will depend on the type of drug or chemical taken. An intentional overdose is likely to be a sign that you are depressed, or that you are very angry with yourself or someone else. In order to reduce the risk of harming yourself, we will arrange for you to have a psychiatric evaluation. Home Care: If LIQUID CHARCOAL was given to neutralize what was swallowed, it will cause a black color to the stools for 1-2 days. Usually, a laxative (sorbitol) is given with charcoal to speed the removal of any toxins from the intestinal tract. This may cause diarrhea for up to 24 hours. If no laxative was given with charcoal, you may get constipated. If this occurs, you may take an giap-egy-hpokrjg laxative such as Dulcolax pills or suppository. Follow Up with your doctor if all symptoms do not resolve within 24 hours or if constipation is not relieved by one or two doses of laxatives. If you are being discharged for immediate evaluation at a psychiatric hospital or clinic on a voluntary basis, you must go directly there with a responsible adult. If you have been placed on a legal 72 hour psychiatric hold, a ride to a psychiatric facility will be arranged for you. Get Prompt Medical Attention if any of the following occur: Excess drowsiness or inability to be awakened Rapid heart beat, you feel shaky, or you have a seizure Fast breathing (over 25 breaths/minute) or slow breathing (less than 8 breaths/minute) Feeling shortness of breath Fever of 100.4F (38C) or higher, or as directed by your healthcare provider Vomiting or diarrhea for more than 24 hours Blood in stools or vomit (black or red color) Chest or abdominal pain Dizziness, weakness or fainting Thoughts of harming yourself again Alcohol Overdose You have overdosed on alcohol. This means you drank a large amount of alcohol in a short period of time.An alcohol overdose is a serious condition. It can cause coma and even ! It puts you at risk for vomiting and aspiration (when the vomit is breathed into your lungs!). Aspiration causes a severe pneumonia that can be fatal. An alcohol overdose can be a result of not understanding the powerful effects of alcohol. But it can also be a sign of depression or excessive anger at yourself or another person. If you feel that there are emotional reasons for this overdose, we advise that you have an evaluation by a psychiatrist, counselor or therapist. Home Care: Do not drink any more alcohol. DO NOT DRIVE until all effects of the alcohol have worn off. Get lots of rest over the next few days and drink lots of water and other non-alcoholic liquids. Try to eat regular meals. If you have been drinking heavily on a daily basis, you may go through ALCOHOL WITHDRAWAL, also called the shakes or DTs. The usual symptoms last 3-4 days and may include nausea, sweating, sleeplessness, nervousness, shakiness or seizure. During this time, it is best that you stay with family or friends who can help and support you. You can also admit yourself to a residential detox program. Heavy regular drinking combined with poor nutrition can lead to a thiamine deficiency and cause permanent brain damage.If you are unable to stop drinking, it is important that you take daily vitamins. Follow Up: If alcohol is causing a problem in your life, the following organizations are available to help: Alcoholics Anonymous offers support through a self-help fellowship.There are no dues or fees. See the Yellow Pages and call for time and place of meetings. www.aa.org [employer] offers support to families of alcohol users.458-650-4064tsl.al-anon.org National [place] on Alcoholism and Drug Dependencewww.ncadd.itk391-798- 2993 Residential alcohol detox programs are available. Check the Yellow Pages under Drug Abuse & Treatment Centers. Return Promptly or contact your doctor if any of the following occur: Severe shakiness or seizure (convulsion) Fever over 100.4 F (38C) Confusion or hallucinations (seeing, hearing or feeling things that aren't there) Increasing upper abdominal pain Repeated vomiting or vomiting blood You have been given the following additional information: Overdose, Intentional (Adult) Alcohol Overdose (Electronically signed by Justice Napoles DO 08/11/2016 12:41)
[2016-08-12] VITALS (9 sets, daily range): BP systolic 107–132; BP diastolic 46–89
--- NOTE | 2016-08-12 09:21 | Provider's Discharge Care Plan ---
Problem, Goal, Plan Problem List 1. ALCOHOL INTOXICATION Instructions: - avoid alcohol intake 2. SEROQUEL OVERDOSE Instructions: - take seroquel as prescrbied, do not overtake the amount written 3. SUICIDE ATTEMPT Instructions: - take meds as prescribed - avoid alcohol intoxication
== END 2016-08-12 10:42 | disposition home or self-care (01) | DRG 918 ==
LOC: ED SRH 08:45 → TRANS SRH 10:05 → CC SRH 10:05 → TRANS SRH 10:05 → CC SRH 11:23
PROVIDERS: ADMIT Emergency Medicine
DX: T43.592A Poisoning by other antipsychotics and neuroleptics, intentional self-harm, initial encounter (principal); T51.0X2A Toxic effect of ethanol, intentional self-harm, initial encounter; R40.0 Somnolence; F10.220 Alcohol dependence with intoxication, uncomplicated; R91.8 Other nonspecific abnormal finding of lung field; Z78.1 Physical restraint status
CPT/HCPCS: 90004; 90074; 90100; 90469; 90616; 91320; 91672; 92010; 92132; 92530; 92610; 92720; 92760; 92761; 92762; 92763; 92764; 92765; 92766; 92767; 92780; 93070; 93140; 95059; 97000

== ENCOUNTER 2016-09-17 08:35 | Observation (INO) | payer OTHER ==
[2016-09-17] VITALS (8 sets, daily range): BP systolic 104–197; BP diastolic 65–75
[~2016-09-17] VITALS: Ht 172.7 cm; Wt 63.3 kg
[~2016-09-17 08:35] MED LIST: AMOXICILLIN250 MG PO; DOXYCYCLINE100 MG PO; GABAPENTIN300 MG PO; MELATONIN1 MG PO; SEROQUEL25 MG PO
--- NOTE | 2016-09-17 10:21 | DIAGNOSTIC IMAGING REPORT ---
PROCEDURE: XR CHEST 1 VIEW INDICATION: COUGH TECHNIQUE: Portable AP view 09:32 a.m. COMPARISON: Chest 08/11/2016 FINDINGS: Lungs are clear. Heart and mediastinum are normal. Thorax is normal. IMPRESSION: 1. Negative chest.
--- NOTE | 2016-09-17 14:24 | ED CLINICAL REPORT ---
Clinical Report - Physicians/Mid Levels [facility] [address] [place] [address] 09/17/2016 8:37 Patient: IRWIN DAMON Time Seen: 0935. Arrived- By private vehicle. Historian- patient. HISTORY OF PRESENT ILLNESS Chief Complaint: "GOT THE SHAKES" and TREMORS. Symptoms started past few days. Duration of substance abuse- "months". Substances abused: Alcohol. ("a few days ago"). No fever, chills, delusions, hallucinations or suicidal thoughts. She has had tremors and been agitated. Not paranoid. Has not been depressed. states she has a sore throat and cough for the past 3 days. reports it is non-productive, staying the same, moderate in severity, has never had this before, and is constant. The symptoms are described as moderate. No injuries noted. No recent fall. Not assaulted. Similar symptoms previously: None. Recent medical care: Not recently seen/assessed. REVIEW OF SYSTEMS No chest pain, palpitations, black stools, bloody stools or cough. No abdominal pain. in contrast to what was recorded from triage. All systems otherwise negative, except as recorded above. PAST HISTORY See nurses notes. Medications: Melatonin Extra Strength Oral. Allergies: No Known Drug Allergy. SOCIAL HISTORY Smoker- current status unknown. Alcohol use. No drug use. Has social support. Lives with family. Has place to stay. FAMILY HISTORY Negative. ADDITIONAL NOTES The nursing notes have been reviewed. PHYSICAL EXAM Vital Signs: 09/17/2016 08:49 BP: 144/92. HR: 120. RR: 24. O2 saturation: 93%. Temp: 99.3 F. Pain level now: 0/10. Blood pressure normal. Oxygen saturation normal. Appearance: Alert. Oriented X3. Odor of alcohol is present. Head: Head atraumatic. Eyes: Pupils equal, round and reactive to light. ENT: Normal ENT inspection. Airway intact. Moist mucous membranes. Pharynx normal. Neck: Normal inspection. Neck supple. No meningeal signs. CVS: Tachycardia. Heart sounds normal. Pulses normal. Rhythm normal. Respiratory: No respiratory distress. Breath sounds normal. No rales, wheezes or rhonchi. Abdomen: Soft and nontender. No organomegaly. Back: Normal inspection. Skin: Skin warm and dry. Normal skin color. No rash. Normal skin turgor. Extremities: Extremities exhibit normal ROM. No lower extremity edema. Neuro: Alert. Oriented X 3. Mood/affect normal. Speech normal. Cranial nerves normal (as tested). No cerebellar findings. No motor deficit. No sensory deficit. (resting tremor. mild tongue fasciculation's.). LABS, X-RAYS, AND EKG EKG: No acute ischemia. Tachycardia (113). Normal P waves. Normal CHRIST. Normal QRS complex. Normal axis. Normal ST and T waves, QT and QTc. normal sinus. possible L ant fascicular block vs normal variant. The study has been interpreted contemporaneously. The study has been independently viewed by me. The EKG appears to be a good tracing. Chest X-ray: Normal Chest X-Ray. Laboratory Tests: UA-Culture if indicated: (DANIEL: 09/17/2016 10:52) ( [facility] 09/17/2016 11:32) Final results Test Result Flag Units (Reference) URINE COLOR YELLOW URINE APPEARANCE CLEAR URINE GLUCOSE NEGATIVE (NEGATIVE) URINE BILIRUBIN NEGATIVE (NEGATIVE) URINE KETONE NEGATIVE (NEGATIVE) URINE SPECIFIC GRAVITY <= 1.005 L (1.010-1.030) URINE PH 6.5 (5.0-8.0) URINE PROTEIN NEGATIVE (NEGATIVE) URINE UROBILINOGEN 0.2 EU/dL (0.2-1.0) URINE NITRITE NEGATIVE (NEGATIVE) URINE BLOOD NEGATIVE (NEGATIVE) URINE LEUK ESTERASE POSITIVE (NEGATIVE) URINE RBC 0-1 rbc/hpf (0-1) URINE WBC 1-3 wbc/hpf (0-1) URINE EPITHELIAL CELLS 1-3 EPI/hpf (0-5) URINE BACTERIA NONE SEEN (NONE SEEN) URINE COMMENT CULTURE INDICATED URINE CULTURES ARE SET-UP BASED ON THE FOLLOWING CRITERIA:POSITIVE NITRITEPOSITIVE LEUKOCYTE ESTERASEGREATER THAN 10 WHITE BLOOD CELLSMODERATE (2+) OR GREATER BACTERIA Urine: (DANIEL: 09/17/2016 10:52) ( [facility] 09/17/2016 11:21) Final results Test Result Flag Units (Reference) URINE NEGATIVE CBC w Diff: (DANIEL: 09/17/2016 09:20) ( [facility] 09/17/2016 09:39) Final results Test Result Flag Units (Reference) WHITE BLOOD COUNT 14.8 H K/uL (4.5-11.5) RED BLOOD COUNT 3.37 L M/uL (4.00-5.20) HEMOGLOBIN 12.0 gm/dL (12.0-16.0) HEMATOCRIT 35.8 L % (36.0-46.0) MEAN CELL VOLUME 106 H fL (80-100) MEAN CORPUSCULAR HGB 36 H pg (26-34) MEAN CORPUSCULAR HGB CONC 33 g/dL (31-37) RED CELL DISTRIBUTION WIDTH 17.1 H % (11.6-14.8) PLATELET COUNT 157 K/uL (150-400) NEUTROPHIL % 92.1 H % (50-75) LYMPH % 5.0 L % (25-40) MONO % 2.2 L % (3-14) EOSINOPHIL % 0 % (0-4) BASOPHIL % 0.7 % (0-2) PT with INR: (DANIEL: 09/17/2016 09:20) ( [facility] 09/17/2016 09:59) Final results Test Result Flag Units (Reference) INR 0.9 (0.8-1.2) Low Intensity Therapy: INR 1.5-2.0 PT range 18.5-23.1Mod.Intensity Therapy: INR 2.0-3.0 PT range 23.1-31.5High Intensity Therapy: INR 2.5-3.5 PT range 27.4-35.5High Intensity Therapy 2: INR 3.0-4.0 PT range 31.5-39.3 Lactate, Serum: (DAINEL: 09/17/2016 12:14) ( [facility] 09/17/2016 12:55) Final results Test Result Flag Units (Reference) LACTIC ACID 1.6 mmol/L (0.4-2.0) Urine Drug Screen: (DANIEL: 09/17/2016 10:52) ( [facility] 09/17/2016 11:33) Final results Test Result Flag Units (Reference) AMPHETAMINE/METHAMPHETAMINE NEGATIVE (NEGATIVE) BARBITURATE NEGATIVE (NEGATIVE) BENZODIAZEPINE NEGATIVE (NEGATIVE) CANNABINOID NEGATIVE (NEGATIVE) COCAINE NEGATIVE (NEGATIVE) ECSTASY NEGATIVE (NEGATIVE) METHADONE NEGATIVE (NEGATIVE) OPIATE NEGATIVE (NEGATIVE) The urine drug screen is a qualitative screening test fordrug overdose and abuse. All screen results should beconsidered as presumptive.Drugs screened for are as follows:BenzodiazepinesCocaineAmphetamines/MetamphetaminesTHC (Tetrahydrocannabinol)OpiatesBarbituratesEcstasyMethadonePositive results are unconfirmed. For confirmation, notifythe lab for the specimen to be sent to the reference lab.All confirmations must be performed by a differentmethodology.The ingestion of natural herbal and plant productscontaining Ephedra/Ephedra metabolites can produce in urineone or more substances capable of cross reacting withamphetamine/methamphetamine immunoassays. These testsprovide a preliminary result only. A more specificalternative chemical method must be used to obtain aconfirmed analytical result. Lactate, Serum: (DANIEL: 09/17/2016 09:40) ( [facility] 09/17/2016 10:31) Final results Test Result Flag Units (Reference) LACTIC ACID 4.4 H mmol/L (0.4-2.0) CRITICAL RESULTS CALLEDCalled to [facility] 09/17/16 1031Were 2 patient identifiers used? YWas the result read back? Y CMP: (DANIEL: 09/17/2016 09:20) ( [facility] 09/17/2016 09:58) Final results Test Result Flag Units (Reference) GLUCOSE 82 mg/dL (70-110) BUN 5 L mg/dL (7-18) CREATININE 0.7 mg/dL (0.6-1.3) Estimated GFR >60 mL/min Estimated GFR- >60 mL/min Note: Persistent reduction over 3 months in eGFR<60 mL/min/1.73 m2 defines CKD. Patients with eGFR values>=60 mL/min/1.73 m2 may also have CKD if evidence ofpersistent proteinuria. Additional information may be foundat www.kidney.org. SODIUM 139 mmol/L (136-145) POTASSIUM 4.3 mmol/L (3.5-5.1) CHLORIDE 98 mmol/L (98-107) CARBON DIOXIDE 27 mmol/L (21-32) CALCIUM 7.7 L mg/dL (8.5-10.1) TOTAL PROTEIN 7.5 g/dL (6.4-8.2) ALBUMIN 3.1 L g/dL (3.3-5.0) BILIRUBIN, TOTAL 0.4 mg/dL (0.0-1.0) ALKALINE PHOSPHATASE 122 H U/L (46-116) AST (SGOT) 67 H U/L (15-37) ALT (SGPT) 23 U/L (12-78) Culture, Strep Screen: (DANIEL: 09/17/2016 09:50) ( Msg[facility]cv[facility] 09/17/2016 12:27) Final results Test Result Flag Units (Reference) RAPID STREP SCREEN - THROAT DATE: 09/17/16 NEGATIVE SCREEN: RAPID STREP SCREEN NEGATIVE; CONFIRMATION TO FOLLOW . PROGRESS AND PROCEDURES Course of Care: thhe patient is a pleasant 45-year-old female presenting for a function of upper respiratory tract infection symptoms. This time differential diagnosis includes viral URI versus bronchitis versus pneumonia. Patient is noted to be tachycardic here in the emergency department. Patient has been requesting something to relax multiple times. Throughout the interview the patient had mentioned needing something to relax over a dozen times. I asked the patient why she needed something so badly to relax. Was concern for an infectious etiology however patient was requesting a sedative type of medication. Through this discussion, patient has reported that she has been drinking heavily over the past month. Patient states that she's been drinking approximately 10 drinks a day. The son differential diagnosis is changed to alcohol withdrawal. Patient will be fired for other etiologies for her upper respiratory tract symptoms as well. Patient is agreeable to the treatment plan. Patient's workup was remarkable for the findings above. Patient is required several doses of Valium to help with the symptoms of trauma. Patient is not forthcoming with further duration in regards to the amount she is drinking. Because the amount of Valium needed to help with the patient's symptoms, do not feel patient is only been drinking 10 drinks a day. Suspect a higher amount of alcohol consumption on average. Because of the patient's continued symptoms of alcohol withdrawal and continued tremors and tongue fasiculations, patient should be admitted to the hospital. Symptoms weresomewhat controlled while here in the emergency department however is not a point where the patient is able to return home safely. Discussed with the patient her workup here in emergency department diagnosis, workup, and plan of care. All questions have been answered. The patient expressed understanding of these instructions and was agreeable to him. spoke with hospitalist who is agreeable to the treatment and plan. No further recommendations. Critical care performed (65 minutes). Time is exclusive of separately billable procedures. Time includes: direct patient care, patient reassessment, coordination of patient care, interpretation of data (laboratory data), review of patient's medical records, medical consultation and documentation of patient care. Disposition: Admitted to the Critical Care Unit. CLINICAL IMPRESSION 09/17/2016 08:49 BP: 144/92. HR: 120. RR: 24. O2 saturation: 93%. Temp: 99.3 F. Pain level now: 0/10. Adjustment disorder with anxiety. Blood pressure normal. Oxygen saturation normal. Alcohol withdrawal with agitation (acute). Acute laryngitis. INSTRUCTIONS Warnings: GENERAL WARNINGS: Return or contact your physician immediately if your condition worsens or changes unexpectedly, if not improving as expected, or if other problems arise. Specifically return if pain, vomiting, bleeding, breathing difficulty or fever. Your Current Medications: CONTINUE TAKING THE FOLLOWING MEDICATIONS: Melatonin Extra Strength Oral. Prescription Medications: Valium 5 mg: take 1 orally every 8 hours as needed for anxiety. No refill. Substitution is permissible. (disp 3 tabs.) Follow-up: Return to the emergency department as needed. Follow up with your doctor in two days. Reason for referral: recheck today's concerns. Summary of care provided to patient via paper. Screening today revealed the patient's blood pressure to be in the normal range. The patient should follow up with a primary care provider for blood pressure management. Understanding of the discharge instructions verbalized by patient. (Electronically signed by Corey Cedeno Dr. 09/21/2016 12:39)
--- NOTE | 2016-09-17 14:24 | ED CLINICAL REPORT ---
Clinical Report - Physicians/Mid Levels [facility] [address] [place] [address] 09/17/2016 8:37 Patient: IRWIN DAMON Time Seen: 0935. Arrived- By private vehicle. Historian- patient. HISTORY OF PRESENT ILLNESS Chief Complaint: "GOT THE SHAKES" and TREMORS. Symptoms started past few days. Duration of substance abuse- "months". Substances abused: Alcohol. ("a few days ago"). No fever, chills, delusions, hallucinations or suicidal thoughts. She has had tremors and been agitated. Not paranoid. Has not been depressed. states she has a sore throat and cough for the past 3 days. reports it is non-productive, staying the same, moderate in severity, has never had this before, and is constant. The symptoms are described as moderate. No injuries noted. No recent fall. Not assaulted. Similar symptoms previously: None. Recent medical care: Not recently seen/assessed. REVIEW OF SYSTEMS No chest pain, palpitations, black stools, bloody stools or cough. No abdominal pain. in contrast to what was recorded from triage. All systems otherwise negative, except as recorded above. PAST HISTORY See nurses notes. Medications: Melatonin Extra Strength Oral. Allergies: No Known Drug Allergy. SOCIAL HISTORY Smoker- current status unknown. Alcohol use. No drug use. Has social support. Lives with family. Has place to stay. FAMILY HISTORY Negative. ADDITIONAL NOTES The nursing notes have been reviewed. PHYSICAL EXAM Vital Signs: 09/17/2016 08:49 BP: 144/92. HR: 120. RR: 24. O2 saturation: 93%. Temp: 99.3 F. Pain level now: 0/10. Blood pressure normal. Oxygen saturation normal. Appearance: Alert. Oriented X3. Odor of alcohol is present. Head: Head atraumatic. Eyes: Pupils equal, round and reactive to light. ENT: Normal ENT inspection. Airway intact. Moist mucous membranes. Pharynx normal. Neck: Normal inspection. Neck supple. No meningeal signs. CVS: Tachycardia. Heart sounds normal. Pulses normal. Rhythm normal. Respiratory: No respiratory distress. Breath sounds normal. No rales, wheezes or rhonchi. Abdomen: Soft and nontender. No organomegaly. Back: Normal inspection. Skin: Skin warm and dry. Normal skin color. No rash. Normal skin turgor. Extremities: Extremities exhibit normal ROM. No lower extremity edema. Neuro: Alert. Oriented X 3. Mood/affect normal. Speech normal. Cranial nerves normal (as tested). No cerebellar findings. No motor deficit. No sensory deficit. (resting tremor. mild tongue fasciculation's.). LABS, X-RAYS, AND EKG EKG: No acute ischemia. Tachycardia (113). Normal P waves. Normal CHRIST. Normal QRS complex. Normal axis. Normal ST and T waves, QT and QTc. normal sinus. possible L ant fascicular block vs normal variant. The study has been interpreted contemporaneously. The study has been independently viewed by me. The EKG appears to be a good tracing. Chest X-ray: Normal Chest X-Ray. Laboratory Tests: UA-Culture if indicated: (DANIEL: 09/17/2016 10:52) ( [facility] [place] Final results Test Result Flag Units (Reference) URINE COLOR YELLOW URINE APPEARANCE CLEAR URINE GLUCOSE NEGATIVE (NEGATIVE) URINE BILIRUBIN NEGATIVE (NEGATIVE) URINE KETONE NEGATIVE (NEGATIVE) URINE SPECIFIC GRAVITY <= 1.005 L (1.010-1.030) URINE PH 6.5 (5.0-8.0) URINE PROTEIN NEGATIVE (NEGATIVE) URINE UROBILINOGEN 0.2 EU/dL (0.2-1.0) URINE NITRITE NEGATIVE (NEGATIVE) URINE BLOOD NEGATIVE (NEGATIVE) URINE LEUK ESTERASE POSITIVE (NEGATIVE) URINE RBC 0-1 rbc/hpf (0-1) URINE WBC 1-3 wbc/hpf (0-1) URINE EPITHELIAL CELLS 1-3 EPI/hpf (0-5) URINE BACTERIA NONE SEEN (NONE SEEN) URINE COMMENT CULTURE INDICATED URINE CULTURES ARE SET-UP BASED ON THE FOLLOWING CRITERIA:POSITIVE NITRITEPOSITIVE LEUKOCYTE ESTERASEGREATER THAN 10 WHITE BLOOD CELLSMODERATE (2+) OR GREATER BACTERIA Urine: (DANIEL: 09/17/2016 10:52) ( [place] 09/17/2016 11:21) Final results Test Result Flag Units (Reference) URINE NEGATIVE CBC w Diff: (DANIEL: 09/17/2016 09:20) ( [facility] 09/17/2016 09:39) Final results Test Result Flag Units (Reference) WHITE BLOOD COUNT 14.8 H K/uL (4.5-11.5) RED BLOOD COUNT 3.37 L M/uL (4.00-5.20) HEMOGLOBIN 12.0 gm/dL (12.0-16.0) HEMATOCRIT 35.8 L % (36.0-46.0) MEAN CELL VOLUME 106 H fL (80-100) MEAN CORPUSCULAR HGB 36 H pg (26-34) MEAN CORPUSCULAR HGB CONC 33 g/dL (31-37) RED CELL DISTRIBUTION WIDTH 17.1 H % (11.6-14.8) PLATELET COUNT 157 K/uL (150-400) NEUTROPHIL % 92.1 H % (50-75) LYMPH % 5.0 L % (25-40) MONO % 2.2 L % (3-14) EOSINOPHIL % 0 % (0-4) BASOPHIL % 0.7 % (0-2) PT with INR: (DANIEL: 09/17/2016 09:20) ( [facility] 09/17/2016 09:59) Final results Test Result Flag Units (Reference) INR 0.9 (0.8-1.2) Low Intensity Therapy: INR 1.5-2.0 PT range 18.5-23.1Mod.Intensity Therapy: INR 2.0-3.0 PT range 23.1-31.5High Intensity Therapy: INR 2.5-3.5 PT range 27.4-35.5High Intensity Therapy 2: INR 3.0-4.0 PT range 31.5-39.3 Lactate, Serum: (DANIEL: 09/17/2016 12:14) ( [facility] 09/17/2016 12:55) Final results Test Result Flag Units (Reference) LACTIC ACID 1.6 mmol/L (0.4-2.0) Urine Drug Screen: (DANIEL: 09/17/2016 10:52) ( [facility] [place]17[place] 11:33) Final results Test Result Flag Units (Reference) AMPHETAMINE/METHAMPHETAMINE NEGATIVE (NEGATIVE) BARBITURATE NEGATIVE (NEGATIVE) BENZODIAZEPINE NEGATIVE (NEGATIVE) CANNABINOID NEGATIVE (NEGATIVE) COCAINE NEGATIVE (NEGATIVE) ECSTASY NEGATIVE (NEGATIVE) METHADONE NEGATIVE (NEGATIVE) OPIATE NEGATIVE (NEGATIVE) The urine drug screen is a qualitative screening test fordrug overdose and abuse. All screen results should beconsidered as presumptive.Drugs screened for are as follows:BenzodiazepinesCocaineAmphetamines/MetamphetaminesTHC (Tetrahydrocannabinol)OpiatesBarbituratesEcstasyMethadonePositive results are unconfirmed. For confirmation, notifythe lab for the specimen to be sent to the reference lab.All confirmations must be performed by a differentmethodology.The ingestion of natural herbal and plant productscontaining Ephedra/Ephedra metabolites can produce in urineone or more substances capable of cross reacting withamphetamine/methamphetamine immunoassays. These testsprovide a preliminary result only. A more specificalternative chemical method must be used to obtain aconfirmed analytical result. Lactate, Serum: (DANIEL: 09/17/2016 09:40) ( [facility] [place] 10:[place]) Final results Test Result Flag Units (Reference) LACTIC ACID 4.4 H mmol/L (0.4-2.0) CRITICAL RESULTS CALLEDCalled to [facility] 09/17/16 1031Were 2 patient identifiers used? YWas the result read back? Y CMP: (DANIEL: 09/17/2016 09:20) ( [facility] [place]17[place] 09:58) Final results Test Result Flag Units (Reference) GLUCOSE 82 mg/dL (70-110) BUN 5 L mg/dL (7-18) CREATININE 0.7 mg/dL (0.6-1.3) Estimated GFR >60 mL/min Estimated GFR- >60 mL/min Note: Persistent reduction over 3 months in eGFR<60 mL/min/1.73 m2 defines CKD. Patients with eGFR values>=60 mL/min/1.73 m2 may also have CKD if evidence ofpersistent proteinuria. Additional information may be foundat [email or web address].org. SODIUM 139 mmol/L (136-145) POTASSIUM 4.3 mmol/L (3.5-5.1) CHLORIDE 98 mmol/L (98-107) CARBON DIOXIDE 27 mmol/L (21-32) CALCIUM 7.7 L mg/dL (8.5-10.1) TOTAL PROTEIN 7.5 g/dL (6.4-8.2) ALBUMIN 3.1 L g/dL (3.3-5.0) BILIRUBIN, TOTAL 0.4 mg/dL (0.0-1.0) ALKALINE PHOSPHATASE 122 H U/L (46-116) AST (SGOT) 67 H U/L (15-37) ALT (SGPT) 23 U/L (12-78) Culture, Strep Screen: (DANIEL: 09/17/2016 09:50) ( [facility]cv[facility] 09/17/2016 12:27) Final results Test Result Flag Units (Reference) RAPID STREP SCREEN - THROAT DATE: 09/17/16 NEGATIVE SCREEN: RAPID STREP SCREEN NEGATIVE; CONFIRMATION TO FOLLOW . PROGRESS AND PROCEDURES Course of Care: thhe patient is a pleasant 45-year-old female presenting for a function of upper respiratory tract infection symptoms. This time differential diagnosis includes viral URI versus bronchitis versus pneumonia. Patient is noted to be tachycardic here in the emergency department. Patient has been requesting something to relax multiple times. Throughout the interview the patient had mentioned needing something to relax over a dozen times. I asked the patient why she needed something so badly to relax. Was concern for an infectious etiology however patient was requesting a sedative type of medication. Through this discussion, patient has reported that she has been drinking heavily over the past month. Patient states that she's been drinking approximately 10 drinks a day. The son differential diagnosis is changed to alcohol withdrawal. Patient will be fired for other etiologies for her upper respiratory tract symptoms as well. Patient is agreeable to the treatment plan. Patient's workup was remarkable for the findings above. Patient is required several doses of Valium to help with the symptoms of trauma. Patient is not forthcoming with further duration in regards to the amount she is drinking. Because the amount of Valium needed to help with the patient's symptoms, do not feel patient is only been drinking 10 drinks a day. Suspect a higher amount of alcohol consumption on average. Because of the patient's continued symptoms of alcohol withdrawal and continued tremors and tongue fasiculations, patient should be admitted to the hospital. Symptoms weresomewhat controlled while here in the emergency department however is not a point where the patient is able to return home safely. Discussed with the patient her workup here in emergency department diagnosis, workup, and plan of care. All questions have been answered. The patient expressed understanding of these instructions and was agreeable to him. spoke with hospitalist who is agreeable to the treatment and plan. No further recommendations. Critical care performed (65 minutes). Time is exclusive of separately billable procedures. Time includes: direct patient care, patient reassessment, coordination of patient care, interpretation of data (laboratory data), review of patient's medical records, medical consultation and documentation of patient care. Disposition: Admitted to the Critical Care Unit. CLINICAL IMPRESSION 09/17/2016 08:49 BP: 144/92. HR: 120. RR: 24. O2 saturation: 93%. Temp: 99.3 F. Pain level now: 0/10. Adjustment disorder with anxiety. Blood pressure normal. Oxygen saturation normal. Alcohol withdrawal with agitation (acute). Acute laryngitis. INSTRUCTIONS Warnings: GENERAL WARNINGS: Return or contact your physician immediately if your condition worsens or changes unexpectedly, if not improving as expected, or if other problems arise. Specifically return if pain, vomiting, bleeding, breathing difficulty or fever. Your Current Medications: CONTINUE TAKING THE FOLLOWING MEDICATIONS: Melatonin Extra Strength Oral. Prescription Medications: Valium 5 mg: take 1 orally every 8 hours as needed for anxiety. No refill. Substitution is permissible. (disp 3 tabs.) Follow-up: Return to the emergency department as needed. Follow up with your doctor in two days. Reason for referral: recheck today's concerns. Summary of care provided to patient via paper. Screening today revealed the patient's blood pressure to be in the normal range. The patient should follow up with a primary care provider for blood pressure management. Understanding of the discharge instructions verbalized by patient. (Electronically signed by Corey Cedeno Dr. 09/21/2016 12:39)
--- NOTE | 2016-09-17 14:24 | ED NURSING NOTES ---
Clinical Report - Nurses [facility] [place] [address] 09/17/2016 8:37 Patient: IRWIN DAMON TRIAGE Acuity: LEVEL 3. Chief Complaint: SHORTNESS OF BREATH and (ANXIETY). Alert. No acute distress. SEPSIS SCREEN: Sepsis Screen. Negative (no infection suspected/documented). --08:56 Kassandra Reed R.N. 08:49 09/17/16. BP: 144/92. HR: 120. RR: 24. O2 saturation: 93% on room air. Temp: 99.3 F (oral). Pain level now: 0/10. --08:56 Kassandra Reed R.N. Weight: 54.4 kg stated. Height/Length: 68 inches Per Patient. BMI: 18.2. --08:55 Kassandra Reed R.N. Medications Melatonin Extra Strength Oral. --08:50 Kassandra Reed R.N. Allergies No Known Drug Allergy. --08:50 Kassandra Reed R.N. History Arrived by private vehicle. Historian: patient. Accompanied by mother. Primary physician (NONE). This started just prior to arrival. ( Pt states she has been drinking very heavily for one month due to family stressors.). Treatment CONTROL SYSTEMS SPECIALIST: None. PAST MEDICAL HX: Last normal menstrual period was 2 weeks ago. SOCIAL HX: Current some days light tobacco smoker. Heavy alcohol use. Patient is a longstanding alcoholic. Patient smells of ETOH in the emergency department. History of drug use. (PT DENIES DRUG USE). FALL RISK ASSESSMENT: Fall risk assessment completed. No fall risk identified. NUTRITIONAL RISK ASSESSMENT: The nutritional risk assessment revealed no deficiencies. FUNCTIONAL ASSESSMENT: Functional assessment: no impairments noted. LEARNING NEEDS ASSESSMENT: The learning needs assessment revealed no barriers. SKIN INTEGRITY ASSESSMENT: Skin integrity risk assessment completed. No skin integrity risk identified. --08:56 Kassandra Reed R.N. PROBLEMS: Suicide Attempt. Alcohol Intoxication. Drug Poisoning. Mental Illness. Abnormal Liver Function Test. Substance Abuse. Immunizations. --08:50 Kassandra Reed R.N. ADDITIONAL SURGERIES: . --08:50 Kassandra Reed R.N. Assessment GENERAL / NEURO / PSYCH: Alert. Oriented X 4. Appears in no acute distress. Appears anxious. Patient appears calm and cooperative. RESPIRATORY: Respirations not labored. CVS: Capillary refill less than 2 seconds. GI / : Abdomen soft and nontender. SKIN: Mucous membranes are pink. Skin is warm and dry. --08:56 Kassandra Reed R.N. Interventions ID band on patient. To treatment room. --08:56 Kassandra Reed R.N. NURSING PROGRESS NOTES 08:57 09/17/16. Oxygen administered by nasal cannula at 2 liters. vehicle monitor technician, pulse oximeter and NIBP monitor placed on patient; monitor alarms on. Patient gowned. Two patient identifiers checked. Call light placed in reach. Side rails up x 2. Bed placed in lowest position. Brakes of bed on. Patient ready for evaluation- chart flagged and ED physician notified. --08:57 Kassandra Reed R.N. EKG time: (915). EKG was performed by a tech and shown to the ED physician. --09:17 Sabrina Dominguez ER Tech1 09:24 09/17/2016 Site #1 started via IV in the right antecubital space with an 20g angiocath, with aseptic technique and good blood return; one attempt. Blood drawn: rainbow set. Labeled in the presence of the patient and sent to the lab. --:24 Kassandra Reed R.N. 09:25 09/17/2016 Started bag #1 1000 mL IV Fluids IV NS (Saline); at 1000 mL/hr over 1 hour(s) via site #1. Allergies verified and confirmed 5 rights. IV patency established. IV site checked: no pain, redness, or swelling. IV flushed thoroughly pre- and post-medication administration. --: Kassandra Reed R.N. 10:01 09/17/2016 Valium (Diazepam) IVP 5 mg given over 1 minute(s) via site #1. Allergies verified, confirmed 5 rights and sedative warning given to the patient. IV patency established. IV site checked: no pain, redness, or swelling. IV flushed thoroughly pre- and post-medication administration. IVP given by RN. --10:01 Kassandra Reed R.N. 10:50. Patient ID band checked for patient name and birthdate: patient confirmed. Instructions provided to collect clean catch urine and patient verbalized understanding urine collected with return of yellow-colored clear urine; sample sent to lab for urinalysis and drug screen. Specimen labeled in the presence of the patient. --10:54 Sabrina Dominguez, Tech1 10:59 09/17/2016 IV Fluids IV NS Discontinued: bag #1 infused. Total amount infused: 1000 mL. IV patency established. IV site checked: no pain, redness, or swelling. IV flushed thoroughly. --10:59 Kassandra Reed R.N. 11:00 09/17/2016 Started bag #2 1000 mL IV Fluids IV NS (Saline); at 1000 mL/hr over 1 hour(s) via site #1 via IV pump. Allergies verified and confirmed 5 rights. IV patency established. IV site checked: no pain, redness, or swelling. IV flushed thoroughly pre- and post-medication administration. --11:00 Kassandra Reed R.N. 11:09 09/17/2016 Valium (Diazepam) IVP 10 mg given over 2 minute(s) via site #1. Allergies verified, confirmed 5 rights and sedative warning given to the patient. IV patency established. IV site checked: no pain, redness, or swelling. IV flushed thoroughly pre- and post-medication administration. IVP given by RN. --11:09 Kassandra Reed R.N. 11:11 09/17/16. BP: 125/89. HR: 93. RR: 24. O2 saturation: 95% on nasal cannula at 2 liters/minute. --11:12 Kassandra Reed R.N. 12:10 09/17/2016 IV Fluids IV NS Discontinued: bag #2 infused. Total amount infused: 1000 mL. IV patency established. IV site checked: no pain, redness, or swelling. IV flushed thoroughly. --12:10 Kassandra Reed R.N. 12:17 09/17/2016 Valium (Diazepam) IVP 20 mg given over 2 minute(s) via site #1. Allergies verified, confirmed 5 rights and sedative warning given to the patient. IV patency established. IV site checked: no pain, redness, or swelling. IV flushed thoroughly pre- and post-medication administration. --12:17 Fernando Lang R.N. 12:22 09/17/16. BP: 120/78. HR: 77. RR: 20. O2 saturation: 94%. Temp: 100.2 F. Pain level now 0/10. --12:24 Fernando Lang R.N. 12:25 09/17/16. O2 saturation: 95% on nasal cannula at 2 liters/minute. --12:25 Fernando Lang R.N. 12:38 09/17/2016 Started bag #3 1000 mL IV Fluids IV NS (Saline); at 999 mL/hr over 1 hour(s) via site #1 via IV pump. Allergies verified and confirmed 5 rights. IV patency established. IV site checked: no pain, redness, or swelling. IV flushed thoroughly pre- and post-medication administration. --12:38 Fernando Lang R.N. 13:44 09/17/2016 Valium (Diazepam) IVP 20 mg given over 4 minute(s) via site #1. Allergies verified, confirmed 5 rights and sedative warning given to the patient. IV patency established. IV site checked: no pain, redness, or swelling. IV flushed thoroughly pre- and post-medication administration. IVP given by RN. --13:49 Kassandra Reed R.N. 13:46 09/17/2016 IV Fluids IV NS Discontinued: bag #3 infused. Total amount infused: 1000 mL. IV patency established. IV site checked: no pain, redness, or swelling. IV flushed thoroughly. --14:46 Kassandra Reed R.N. 13:50 09/17/2016 Started bag #4 1000 mL IV Fluids IV NS (Saline); at 999 mL/hr over 1 hour(s) via site #1 via IV pump. Allergies verified and confirmed 5 rights. IV patency established. IV site checked: no pain, redness, or swelling. IV flushed thoroughly pre- and post-medication administration. --14:46 Kassandra Reed R.N. 14:47 09/17/2016 Valium (Diazepam) IVP 10 mg given. via site #1. Allergies verified, confirmed 5 rights and sedative warning given to the patient. IV patency established. IV site checked: no pain, redness, or swelling. IV flushed thoroughly pre- and post-medication administration. IVP given by RN (10 mg given per VO from ED MD due to it being the only dose in ED..). --14:48 Kassandra Reed R.N. 14:47 09/17/2016 IV Fluids IV NS Discontinued: bag #4 infused. Total amount infused: 1000 mL. IV patency established. IV site checked: no pain, redness, or swelling. IV flushed thoroughly. --14:47 Kassandra Reed R.N. 15:25 09/17/2016 Started 1 gm of Ceftriaxone IVPB in bag #1 50 mL; at 150 mL/hr over 20 minute(s) via site #1 via IV pump. Allergies verified and confirmed 5 rights. IV patency established. IV site checked: no pain, redness, or swelling. IV flushed thoroughly pre- and post-medication administration. --15:25 Kassandra Reed R.N. 15:45 09/17/2016 Ceftriaxone IVPB Discontinued: bag #1 infused. Total amount infused: 50 mL. IV patency established. IV site checked: no pain, redness, or swelling. IV flushed thoroughly. --17:14 Kassandra Reed R.N. DISPOSITION / DISCHARGE Admitted to the Critical Care Unit. Transported via stretcher by nurse. Report was given to a nurse via a phone call. Report included patient's care, treatment, medications, reviewed medication reconcilliation, and condition (including any recent changes or anticipated changes). All questions were answered. Report was acknowledged and care was transferred. Patient's personal items include: shirt, pants, wallet and cell phone, jacket; items were placed in belongings bag and transported with the patient. She did not have glasses, dentures or a hearing aid. --15:06 Kassandra Reed R.N. 15:04 09/17/16. BP: 116/73. HR: 86. RR: 20. O2 saturation: 95%. Temp: 99.4 F (oral). Pain level now: 0/10. --15:06 Kassandra Reed R.N. 15:13 09/17/2016 Site #[address] upon admission; patent, no pain and no signs of infection or infiltration. Flushed with 10 mL saline; flushes easily. --17:14 Kassandra Reed R.N. Locked/Released at 09/17/2016 17:15 by Kassandra Reed R.N.
--- NOTE | 2016-09-17 14:25 | ED ORDER SUMMARY ---
..... Patient: IRWIN DAMON OrderSheet [facility] VisitID: [id number] [place] [address] 45y, F Registration Date/Time: 09/17/2016 ORDER SHEET Weight: 54.4 kg (stated) Allergies: No Known Drug Allergy GENERAL ORDERS: EKG - ER Stat (09:00 09/17/2016 MWinterer R.N. per protocol) (Ack 9:07 LMuller) (9:07 LMuller) Chest 1V Urgent (09:23 09/17/2016 MWinterer R.N. per protocol) (Ack 9:24 LMuller) (10:01 MWinterer R.N.) Lactate, Serum Urgent (09:09/17/2016 MWinterer R.N. per protocol) (Ack 9:34 LMuller) (9:51 ALawrence ER Tech1) CBC w Diff Urgent (09:09/17/2016 MWinterer R.N. per protocol) (Ack 9:34 LMuller) (9:34 MWinterer R.N.) CMP Urgent (09:09/17/2016 MWinterer R.N. per protocol) (Ack 9:34 LMuller) (9:34 MWinterer R.N.) UA-Culture if indicated Urgent (09:47 09/17/2016 Miguel Angel Garrett) (Ack 9:50 ALawrence ER Tech1) (10:54 ALawrence ER Tech1) PT with INR Urgent (09:47 09/17/2016 Miguel Angel Garrett) (Ack 9:50 ALawrence ER Tech1) (9:51 ALawrence ER Tech1) Urine Drug Screen Urgent (09:47 09/17/2016 Miguel Angel Garrett) (Ack 9:50 ALawrence ER Tech1) (10:54 ALawrence ER Tech1) Urine Urgent (09:47 09/17/2016 Miguel Angel Garrett) (Ack 9:50 ALawrence ER Tech1) (10:54 ALawrence ER Tech1) Culture, Strep Screen Urgent (09:47 09/17/2016 Miguel Angel Garrett) (Ack 9:50 ALawrence ER Tech1) (10:01 MWinterer R.N.) Lactate, Serum Urgent (11:55 09/17/2016 Miguel Angel Garrett) (Ack 12:10 LMuller) (12:15 LMuller) MEDICATION ORDERS: IV FLUIDS: IV NS : initial bolus none -, then 1000 mL/hr (NOW) (09:23 09/17/2016 MWinterer R.N. per protocol) (9:25 MWinterer R.N.) Valium IV 5 mg (HIGH ALERT MEDICATION, NOW) (09:47 09/17/2016 Miguel Angel Garrett) (Ack 9:58 MWinterer R.N.) (10:01 MWinterer R.N.) IV NS : initial bolus 1000 mL (1000 mL/hr), then none - for X1 (NOW) (10:33 09/17/2016 Miguel Angel Garrett) (Ack 10:37 MWinterer R.N.) (11:00 MWinterer R.N.) Valium IV 10 mg (HIGH ALERT MEDICATION, NOW) (11:05 09/17/2016 Miguel Angel Garrett) (11:09 MWinterer R.N.) Valium IV 20 mg (HIGH ALERT MEDICATION, NOW) (12:13 09/17/2016 Miguel Angel Garrett) (12:17 LWhalmarianela R.N.) IV NS : initial bolus 2L, then none - for X1 (NOW) (12:20 09/17/2016 Miguel Angel Garrett) (12:38 LWhalen R.N.) Valium IV 20 mg (HIGH ALERT MEDICATION, NOW) (12:47 09/17/2016 Miguel Angel Garrett) (Ack 13:13 MWinterer R.N.) (13:49 MWinterer R.N.) Valium IV 20 mg (HIGH ALERT MEDICATION, NOW) (14:24 09/17/2016 Miguel Angel Garrett) (Ack 14:38 MWinterer R.N.) (14:48 MWinterer R.N.) Ceftriaxone IV 1 gm/50mL (NOW) (15:17 09/17/2016 Miguel Angel Garrett) (Ack 15:17 MWinterer R.N.) (15:25 MWinterer R.N.) ORDER SHEET NOTES: [Electronically signed by Kassandra Reed R.N. (17:15 09/17/2016)] [Electronically signed by Corey Cedeno Dr. (12:39 09/21/2016)] [Electronically locked/signed by Kassandra Reed R.N. (17:15 09/17/2016)]
--- NOTE | 2016-09-17 19:49 | HISTORY AND PHYSICAL ---
ADMITTED: 09/17/2016 CHIEF COMPLAINT: 1. Alcohol withdrawal HISTORY OF PRESENT ILLNESS: This is a 45-year-old white female who stopped drinking alcohol 3 days ago and since then she became tremulous, shaky, depressed, anxious, very uncomfortable and agitated and checked her blood pressure, it was very high, and also had palpitation without any chest pain, so the patient came to emergency. No seizure. No syncope. MEDICAL/SURGICAL HISTORY: Past medical history: Iron-deficiency anemia. Surgical history: . Hospitalization: Last one was 2 weeks ago, that was the for alcohol withdrawal again. MEDICATIONS: 1. None. ALLERGIES: 1. NO KNOWN DRUG ALLERGIES. SOCIAL HISTORY: The patient is single, has 1 kid, lives alone. Smoking: None. Alcohol: Has been drinking 20 years, 10 beers a day. No history of drug abuse. FAMILY HISTORY: Remarkable for hypertension. REVIEW OF SYSTEMS: No difficulty with the vision or hearing. No weight changes. No runny nose or congestion, but complains of sore throat with a cough and sputum. Mild shortness of breath. No chest pain, and also palpitation as above. Had also nausea with vomiting few times, a loose stool. No abdominal pain. No indigestion. No dysuria, frequency or incontinence. No arthralgia or myalgia. No headaches. No tingling, no numbness. No dizziness. No syncope. No localized weakness. PHYSICAL EXAMINATION: VITAL SIGNS: Blood pressure 144/92, heart rate is 120, respiration 24, oxygen saturation 93% on room air, and temperature 99.3. GENERAL APPEARANCE: Well-developed, well-nourished, good body build. The patient is mildly distressed and tremulous. HEENT: Ears: Normal tympanic membrane. Mouth: Normal hypopharynx, no exudation, no erythema. Nose: Normal mucosa. Ears: Normal tympanic membranes. NECK: Supple. No JVD. No palpable mass. SKIN: Warm and dry with good turgor. LUNGS: Clear to auscultation. No wheezing, no rhonchi or crackles. HEART: Regular S1 and S2, tachycardia, no murmur, no S3. ABDOMEN: Soft, nontender. Bowel sounds are positive. EXTREMITIES: No edema. Good peripheral pulses. No signs of deep vein thrombosis. MUSCULOSKELETAL: Grossly within normal limits. NEUROLOGIC: Alert and oriented x3. Cranial nerves are grossly intact. No motor deficit. Pupils are equal, round, and reactive to light. Extraocular movements are intact. No nystagmus. No cerebellar signs. Deep tendon reflexes are bilateral and symmetric. LAB/IMAGING: Labs: Lactic acid 1.6. Lactic acid actually has gone up to 4.4 after repeat. UA: Positive for leukocyte esterase. Urine test is negative. Urine drug screen is negative. Rapid Strep test is negative. White blood count is 14.8, hemoglobin is 12, hematocrit is 35.8, and platelet count is 157,000. Glucose 82, BUN is 5, creatinine is 0.7, sodium is 139, potassium 4.3 , chloride is 98, CO2 is 27, calcium is 7.7. Liver enzymes elevated including alkaline phosphatase and AST. INR 0.9. EKG: Shows sinus rhythm with tachycardia. IMPRESSION: 1. Alcohol withdrawal. 2. Urinary tract infection. PLAN: The patient will be admitted to the acute care telemetry and will be going on alcohol withdrawal protocol including thiamine and folic acid. We will put the patient on Levaquin 500 mg IV piggyback daily for urinary tract infection and fever. We will follow the patient along in the hospital.
[2016-09-18 00:10] VITALS: BP 110/78
[2016-09-18 02:11] VITALS: BP 120/77
[2016-09-18 03:09] VITALS: BP 115/66
[2016-09-18 04:18] VITALS: BP 108/85
[2016-09-18 05:17] VITALS: BP 103/70
[2016-09-18 06:02] VITALS: BP 121/70
[2016-09-18] MEDS ORDERED: THIAMINE HCL100 MG PO (06:38)
[2016-09-18] MEDS ORDERED: LEVAQUIN500 MG PO (06:38)
[2016-09-18] MEDS ORDERED: NEURONTIN300 MG PO ×3 (06:38)
[2016-09-18] MEDS ORDERED: FOLIC ACID1 MG PO (06:38)
--- NOTE | 2016-09-18 07:10 | DISCHARGE SUMMARY ---
ADMIT DATE: 09/17/2016 DISCHARGE DATE: 09/18/2016 DISCHARGE DIAGNOSES: 1. Alcohol withdrawal. 2. Anxiety and sinus bradycardia. BRIEF HISTORY: A 45-year-old white female who developed depression and anxiety and felt uncomfortable and tremulous and shaky after she stopped drinking 3 days prior to admission. She checked her blood pressure and it was quite high, also had palpitation without any chest pain, so the patient came to the Emergency Department for evaluation and was found to have an alcohol withdrawal. HOSPITAL COURSE: The patient was admitted to [facility] acute care and put on alcohol withdrawal protocol with IV thiamine and IV folic acid and the patient did well during hospital course, but she was found to have a sinus bradycardia, but she said this happened only when she rests and she walked around the bradycardia goes away. She never had any symptoms of dizziness, shortness of breath, or weakness. She was doing fine. She is still doing fine and has no palpitations or chest pain, all her alcohol withdrawal symptoms have gone away. No shakiness or tremulousness and blood pressure is stable. The patient is doing well. PHYSICAL EXAMINATION: VITAL SIGNS: Pulse rate is 46-50, respirations 19, temperature is 99.3, blood pressure 121/70, oxygen saturation 100% on 2 liters of oxygen. LUNGS: Clear to auscultation. No rhonchi or wheezing. HEART: Regular S1 and S2. No murmur. No S3 was heard. ABDOMEN: Soft, nontender. Bowel sounds are positive. EXTREMITIES: No edema. LABS/IMAGING: White blood count is 9.9, hemoglobin is 9.9, hematocrit is 29.6, and platelet count is 84. Sodium is 142, potassium 3.6, chloride is 108, CO2 is 25, BUN is 7, creatinine 0.6, and glucose is 109. DISCHARGE INSTRUCTIONS/MEDICATIONS: Disposition: The patient will be discharged home on medications of Gabapentin 300 mg 3 times a day for 2 weeks and after that go down to 2 a day for a week and after that go down to 1 a day for a week. The patient also was instructed to follow up with her primary care physician within 1 week. Consider Holter monitor for her bradycardia, the patient also was told that she has anemia and thrombocytopenia, most probably due to alcohol, but that can be worked up as an outpatient and work with her primary care doctor as she needs to do a repeat CBC with her primary care doctor. The patient during admission, complained of sore throat, along with questionable urinalysis so I put the patient on Levaquin 500 mg once a day, so one of the discharge medications would be Levaquin 500 mg once a day for 6 more days. Urine culture and throat culture are still pending. The patient was discussed about anemia and thrombocytopenia, most probably due to alcohol, that needs to be rechecked in the patient's primary care office visit and workup done. I discussed anemia with the patient and she says that her anemia is chronic and had it from before and it required an iron supplement. She does not know why she has iron-deficiency, which she says is chronic. Again, she needs to have workup done as an outpatient with her primary care physician.
--- NOTE | 2016-09-21 12:40 | ED MED RECONCILIATION SUMMARY ---
Patient: IRWIN DAMON Medication Reconciliation Report [facility] VisitID: [id number] [place] [address] 45y, F Registration Date/Time: 09/17/2016 Weight: 54.4 kg Height/Length: 68 in. BMI: 18.2 ALLERGIES: No Known Drug Allergy The patient's Home Medications are listed below: CONTINUE TAKING THE FOLLOWING MEDICATIONS: Melatonin Extra Strength Oral The source(s) of the original Home Medication information: Not obtained. The following Medications were given to the patient in the Emergency Department: IV NS IV Fluids bolus 0, then 1000 mL/hr, administered: 09/17/2016 9:25:00 AM Valium [IVP] IVP 5 mg, administered: 09/17/2016 10:01:00 AM IV NS IV Fluids bolus 0, then 1000 mL/hr, administered: 09/17/2016 11:00:00 AM Valium [IVP] IVP 10 mg, administered: 09/17/2016 11:09:00 AM Valium [IVP] IVP 20 mg, administered: 09/17/2016 12:17:00 PM IV NS IV Fluids bolus 0, then 999 mL/hr, administered: 09/17/2016 12:38:00 PM Valium [IVP] IVP 20 mg, administered: 09/17/2016 1:44:00 PM IV NS IV Fluids bolus 0, then 999 mL/hr, administered: 09/17/2016 1:50:00 PM Valium [IVP] IVP 10 mg, administered: 09/17/2016 2:47:00 PM Ceftriaxone [IVPB] IVPB bolus 0, then 1 gm 150 mL/hr, administered: 09/17/2016 3:25:00 PM The following Medications were prescribed to the patient: Valium 5 mg: take 1 orally every 8 hours as needed for anxiety. No refill. Substitution is permissible.(disp 3 tabs.) -- Corey Cedeno Dr.
--- NOTE | 2016-09-21 12:40 | ED MED RECONCILIATION SUMMARY ---
Patient: IRWIN DAMON Medication Reconciliation Report [facility] VisitID: [id number] [place] [address] 45y, F Registration Date/Time: 09/17/2016 Weight: 54.4 kg Height/Length: 68 in. BMI: 18.2 ALLERGIES: No Known Drug Allergy The patient's Home Medications are listed below: CONTINUE TAKING THE FOLLOWING MEDICATIONS: Melatonin Extra Strength Oral The source(s) of the original Home Medication information: Not obtained. The following Medications were given to the patient in the Emergency Department: IV NS IV Fluids bolus 0, then 1000 mL/hr, administered: 09/17/2016 9:25:00 AM Valium [IVP] IVP 5 mg, administered: 09/17/2016 10:01:00 AM IV NS IV Fluids bolus 0, then 1000 mL/hr, administered: 09/17/2016 11:00:00 AM Valium [IVP] IVP 10 mg, administered: 09/17/2016 11:09:00 AM Valium [IVP] IVP 20 mg, administered: 09/17/2016 12:17:00 PM IV NS IV Fluids bolus 0, then 999 mL/hr, administered: 09/17/2016 12:38:00 PM Valium [IVP] IVP 20 mg, administered: 09/17/2016 1:44:00 PM IV NS IV Fluids bolus 0, then 999 mL/hr, administered: 09/17/2016 1:50:00 PM Valium [IVP] IVP 10 mg, administered: 09/17/2016 2:47:00 PM Ceftriaxone [IVPB] IVPB bolus 0, then 1 gm 150 mL/hr, administered: 09/17/2016 3:25:00 PM The following Medications were prescribed to the patient: Valium 5 mg: take 1 orally every 8 hours as needed for anxiety. No refill. Substitution is permissible.(disp 3 tabs.) -- Corey Cedeno Dr.
--- NOTE | 2016-09-21 12:40 | ED MAR SUMMARY ---
..... Medication Administration Record [facility] [address] [address] Patient: IRWIN DAMON Visit ID: [id number] 45y, F Weight: 54.4 kg Height/Length: 68 in BMI: 18.2 ALLERGIES: No Known Drug Allergy Start 09:25 09/17/2016 Kassandra Reed R.N., Stop 10:59 09/17/2016 Kassandra Reed R.N. Medication Administered: IV NS (SALINE), Dose: IV Fluids over 1 hour(s), Rate: 1000 mL/hr, Dispensed: 1000 mL bag, Site: #1 right AC. Medication Ordered: IV NS : initial bolus none -, then 1000 mL/hr (NOW). Given 10:01 09/17/2016 Kassandra Reed R.N. Medication Administered: VALIUM [IVP] (DIAZEPAM), Dose: 5 mg IVP over 1 minute(s), Site: #1 right AC. Medication Ordered: Valium IV 5 mg (HIGH ALERT MEDICATION, NOW). Start 11:00 09/17/2016 Kassandra Reed R.N., Stop 12:10 09/17/2016 Kassandra Reed R.N. Medication Administered: IV NS (SALINE), Dose: IV Fluids over 1 hour(s), Rate: 1000 mL/hr, Dispensed: 1000 mL bag, Site: #1 right AC. Medication Ordered: IV NS : initial bolus 1000 mL (1000 mL/hr), then none - for X1 (NOW). Given 11:09 09/17/2016 Kassandra Reed R.N. Medication Administered: VALIUM [IVP] (DIAZEPAM), Dose: 10 mg IVP over 2 minute(s), Site: #1 right AC. Medication Ordered: Valium IV 10 mg (HIGH ALERT MEDICATION, NOW). Given 12:17 09/17/2016 Fernando Lang R.N. Medication Administered: VALIUM [IVP] (DIAZEPAM), Dose: 20 mg IVP over 2 minute(s), Site: #1 right AC. Medication Ordered: Valium IV 20 mg (HIGH ALERT MEDICATION, NOW). Start 12:38 09/17/2016 Fernando Lang R.N., Stop 13:46 09/17/2016 Kassandra Reed R.N. Medication Administered: IV NS (SALINE), Dose: IV Fluids over 1 hour(s), Rate: 999 mL/hr, Dispensed: 1000 mL bag, Site: #1 right AC. Medication Ordered: IV NS : initial bolus 2L, then none - for X1 (NOW). Given 13:44 09/17/2016 Kassandra Reed R.N. Medication Administered: VALIUM [IVP] (DIAZEPAM), Dose: 20 mg IVP over 4 minute(s), Site: #1 right AC. Medication Ordered: Valium IV 20 mg (HIGH ALERT MEDICATION, NOW). Start 13:50 09/17/2016 Kassandra Reed R.N., Stop 14:47 09/17/2016 Kassandra Reed R.N. Medication Administered: IV NS (SALINE), Dose: IV Fluids over 1 hour(s), Rate: 999 mL/hr, Dispensed: 1000 mL bag, Site: #1 right AC. Medication Ordered: IV NS : initial bolus 2L, then none - for X1 (NOW). Given 14:47 09/17/2016 Kassandra Reed R.N. Medication Administered: VALIUM [IVP] (DIAZEPAM), Dose: 10 mg IVP, Site: #1 right AC. Medication Ordered: Valium IV 20 mg (HIGH ALERT MEDICATION, NOW). Start 15:25 09/17/2016 Kassandra Reed R.N., Stop 15:45 09/17/2016 Kassandra Reed R.N. Medication Administered: CEFTRIAXONE [IVPB], Dose: 1 gm IVPB over 20 minute(s), Rate: 150 mL/hr, Dispensed: 50 mL bag, Site: #1. Medication Ordered: Ceftriaxone IV 1 gm/50mL (NOW).
--- NOTE | 2016-09-21 12:40 | ED DISCHARGE INSTRUCTIONS ---
Patient: IRWIN DAMON General Instructions [facility] VisitID: [id number] [place] [address] 45y, F Registration Date/Time: 09/17/2016 09/17/2016 08:49 BP: 144/92. HR: 120. RR: 24. O2 saturation: 93%. Temp: 99.3 F. Pain level now: 0/10. Adjustment disorder with anxiety. Blood pressure normal. Oxygen saturation normal. Alcohol withdrawal with agitation (acute). Acute laryngitis. INSTRUCTIONS Warnings: GENERAL WARNINGS: Return or contact your physician immediately if your condition worsens or changes unexpectedly, if not improving as expected, or if other problems arise. Specifically return if pain, vomiting, bleeding, breathing difficulty or fever. Your Current Medications: CONTINUE TAKING THE FOLLOWING MEDICATIONS: Melatonin Extra Strength Oral. Prescription Medications: Valium 5 mg: take 1 orally every 8 hours as needed for anxiety. No refill. Substitution is permissible. (disp 3 tabs.) Follow-up: Return to the emergency department as needed. Follow up with your doctor in two days. Reason for referral: recheck today's concerns. Summary of care provided to patient via paper. Screening today revealed the patient's blood pressure to be in the normal range. The patient should follow up with a primary care provider for blood pressure management. Understanding of the discharge instructions verbalized by patient. ADDITIONAL INFORMATION Alcohol Withdrawal Alcohol withdrawal symptoms occur if you have been drinking steadily for at least several days, and your body gets used to the effect of alcohol. When you suddenly stop drinking (or, even just cut down your daily intake but continue to drink), you may develop alcohol withdrawal, also called the The usual symptoms last 3-4 days and include nervousness, shakiness, nausea, sweating, sleeplessness. In severe cases hallucinations (seeing things that are not there) and seizures can occur. Home Care: You will need plenty of rest and fluids over the next several days. Eat regular meals. Of course, do not drink any more alcohol. During this time, it is best that you stay with family or friends who can help and support you. You can also admit yourself to a residential detox program. Do not drive until all symptoms are gone and you are feeling better. If you were given sedative medication to reduce your symptoms, do not take it more often than prescribed and never take it with alcohol. Follow Up: Once you have gone through the withdrawal symptoms, you have fought half of the mercado. To avoid the risk of returning to your previous drinking pattern, it is essential that you get follow-up support and treatment. Alcoholics Anonymous offers support through a self-help fellowship. There are no dues or fees. See the Yellow Pages and call for time and place of meetings. www.aa.org [employer] offers support to families of alcohol users. 940.487.1770 www.al-anon.org National [employer] On Alcoholism And Drug Dependence 928-999-2783 www.ncadd.org Residential alcohol detox programs are available. Check the Yellow Pages under Drug Abuse & Treatment Centers. Get Prompt Medical Attention if any of the following occur: Severe shakiness Hallucinations Seizure Fever over 100.5 F (38.0 C) oral Headache, confusion, extreme drowsiness, inability to awaken Increasing upper abdominal pain Repeated vomiting or vomiting blood Alcohol Withdrawal Seizure You have had a seizure today due to alcohol withdrawal.This occurs when you have been drinking steadily for at least several days, and your body gets used to the effect of alcohol.When you suddenly stop drinking (or, even just cut down your daily intake but continue to drink), you may develop withdrawal symptoms, also called the shakes or DTs. The usual symptoms of alcohol withdrawal last 3 to 4 days and include nervousness, shakiness, nausea, sweating, and sleeplessness.In severe cases hallucinations (seeing things that are not there) and seizures can occur. Standard seizure medicines may not prevent alcohol withdrawal seizures. Sedative medicines such as Ativan, Librium and Valium are more helpful. Home Care: You will need plenty of rest and fluids over the next several days. Eat regular meals.Do not drink any more alcohol.During this time, it is best that you stay with family or friends who can help and support you. You can also admit yourself to an outpatient, inpatient, or residential detox program. Do not drive until all symptoms are gone and you are feeling better. If you were given sedative medication to reduce your symptoms, do not take it more often than prescribed and never take it with alcohol. Heavy regular drinking combined with poor nutrition can lead to a thiamine deficiency and cause permanent brain damage.If you are unable to stop drinking, it is important that you take daily vitamins. Follow Up: Once you have gone through the withdrawal symptoms, you have fought half of the mercado. To avoid the risk of returning to your previous drinking pattern, it is essential that you get follow-up support and treatment. These resources can help you: Alcoholics Anonymous offers support through a self-help fellowship www.aa.org [employer] offers support to families of alcohol users 905-625-8901 www.al-anon.org National Ruby on Alcoholism and Drug Dependence 540-102-7983 www.ncadd.org Search the Internet or check your phonebook for Drug Abuse & Treatment Centers. Return Promptly or contact your doctor if any of the following occurs: Severe shakiness Hallucinations Another seizure Fever of 100.4F (38.0C) or higher Headache, confusion, extreme drowsiness, inability to awaken Increasing upper abdominal pain Repeated vomiting or vomiting blood Adjustment Disorder An adjustment disorder is a condition that results from having a hard time coping with the normal stresses of life. You may feel you have too much to do and cant get it all done. These feelings may be triggered by divorce, job loss, someone you know dying, or by a positive event like getting a new job or getting . These feelings may interfere with your relationships at home and at work. With this condition, it is common to feel sad, guilty, hopeless and restless. These feelings may continue for weeks or months. It can be helpful to identify what is causing the additional stress and takes steps to get extra support. If new stressful events do not occur, it is likely that you will start feeling better within six months. Home Care: If you have been given a prescription for medicine, take it as directed. It helps to talk about your feelings and thoughts with family or friends that understand and support you. Follow Up with your doctor or therapist as advised by our staff. Let them know if this condition lasts more than six months without sign of improvement. For more information, contact the National [place] on Mental Illness at 382-070-4206 or visit www.di.org. Get Prompt Medical Attention if any of the following occur: Worsening depression or anxiety Feeling out of control Thoughts of harming yourself or another Being unable to care for yourself Viral Respiratory Illness [Adult] You have an Upper Respiratory Illness (URI) caused by a virus. This illness is contagious during the first few days. It is spread through the air by coughing and sneezing or by direct contact (touching the sick person and then touching your own eyes, nose or mouth). Most viral illnesses go away within 7-10 days with rest and simple home remedies. Sometimes, the illness may last for several weeks. Antibiotics will not kill a virus and are generally not prescribed for this condition. Home Care: 1) If symptoms are severe, rest at home for the first 2-3 days. When you resume activity, don't let yourself get too tired. 2) Avoid being exposed to cigarette smoke (yours or others). 3) Tylenol (acetaminophen) or ibuprofen (Advil, Motrin) will help fever, muscle aching and headache. (Persons under 18 with fever should not take aspirin since this may cause liver damage.) 4) Your appetite may be poor, so a light diet is fine. Avoid dehydration by drinking 6-8 glasses of fluids per day (water, soft drinks, juices, tea, soup). Extra fluids will help loosen secretions in the nose and lungs. 5) Aari-ffp-nloqapl cold medicines will not shorten the length of time youre sick, but they may be helpful for the following symptoms: cough (Robitussin DM); sore throat (Chloraseptic lozenges or spray); nasal and sinus congestion (Actifed, Sudafed, Chlortrimeton). Follow Up with your doctor or as advised if you dont improve over the next week. Get Prompt Medical Attention if any of the following occur: -- Cough with lots of colored sputum (mucus) or blood in your sputum -- Chest pain, shortness of breath, wheezing or have trouble breathing -- Severe headache; face, neck or ear pain -- Fever over 100.4 F (38.0 C) for more than three days -- You cant swallow due to throat pain Diazepam Oral tablet What is this medicine? DIAZEPAM (dye AZ e julieth) is a benzodiazepine. It is used to treat anxiety and nervousness. It also can help treat alcohol withdrawal, relax muscles, and treat certain types of seizures. How should I use this medicine? Take this medicine by mouth with a glass of water. Follow the directions on the prescription label. If this medicine upsets your stomach, take it with food or milk. Take your doses at regular intervals. Do not take your medicine more often than directed. If you have been taking this medicine regularly for some time, do not suddenly stop taking it. You must gradually reduce the dose or you may get severe side effects. Ask your doctor or health director long term care for advice. Even after you stop taking this medicine it can still affect your body for several days. Talk to your criminal investigator regarding the use of this medicine in children. Special care may be needed. What side effects may I notice from receiving this medicine? Side effects that you should report to your doctor or health director long term care as soon as possible: allergic reactions like skin rash, itching or hives, swelling of the face, lips, or tongue angry, confused, depressed, other mood changes breathing problems feeling faint or lightheaded, falls muscle cramps problems with balance, talking, walking restlessness tremors trouble passing urine or change in the amount of urine unusually weak or tired Side effects that usually do not require medical attention (report to your doctor or health director long term care if they continue or are bothersome): difficulty sleeping, nightmares dizziness, drowsiness, clumsiness, or unsteadiness, a hangover effect headache nausea, vomiting What may interact with this medicine? cimetidine grapefruit juice herbal or dietary supplements like kava kava, melatonin, [place]'s Wort, or valerian medicines for anxiety or sleeping problems, like alprazolam, lorazepam, or triazolam medicines for depression, mental problems or psychiatric disturbances medicines for HIV infection or AIDS prescription pain medicines rifampin, rifapentine, or rifabutin some medicines for seizures like carbamazepine, phenobarbital, phenytoin, or primidone What if I miss a dose? If you miss a dose, take it as soon as you can. If it is almost time for your next dose, take only that dose. Do not take double or extra doses. Where should I keep my medicine? Keep out of the reach of children. This medicine can be abused. Keep your medicine in a safe place to protect it from theft. Do not share this medicine with anyone. Selling or giving away this medicine is dangerous and against the law. Store at room temperature between 15 and 30 degrees C (59 and 86 degrees F). Protect from light. Keep container tightly closed. Throw away any unused medicine after the expiration date. What should I tell my health care provider before I take this medicine? They need to know if you have any of these conditions an alcohol or drug abuse problem bipolar disorder, depression, psychosis or other mental health condition glaucoma kidney or liver disease lung or breathing disease myasthenia gravis Parkinson's disease seizures or a history of seizures suicidal thoughts an unusual or allergic reaction to diazepam, other benzodiazepines, foods, dyes, or preservatives or trying to get breast-feeding What should I watch for while using this medicine? Visit your doctor or health director long term care for regular checks on your progress. Your body can become dependent on this medicine. Ask your doctor or health director long term care if you still need to take it. You may get drowsy or dizzy. Do not drive, use machinery, or do anything that needs mental alertness until you know how this medicine affects you. To reduce the risk of dizzy and fainting spells, do not stand or sit up quickly, especially if you are an older patient. Alcohol may increase dizziness and drowsiness. Avoid alcoholic drinks. Do not treat yourself for coughs, colds or allergies without asking your doctor or health director long term care for advice. Some ingredients can increase possible side effects. You have been given the following additional information: Alcohol Withdrawal Alcohol Withdrawal Seizure Adjustment Disorder Uri, Viral, No Abx (Adult) Diazepam Oral tablet (Electronically signed by Corey Cedeno Dr. 09/21/2016 12:39)
--- NOTE | 2016-09-21 12:40 | ED MAR SUMMARY ---
..... Medication Administration Record [facility] [address] [place] [address] Patient: IRWIN DAMON Visit ID: [id number] 45y, F Weight: 54.4 kg Height/Length: 68 in BMI: 18.2 ALLERGIES: No Known Drug Allergy Start 09:25 09/17/2016 Kassandra Reed R.N., Stop 10:59 09/17/2016 Kassandra Reed R.N. Medication Administered: IV NS (SALINE), Dose: IV Fluids over 1 hour(s), Rate: 1000 mL/hr, Dispensed: 1000 mL bag, Site: #1 right AC. Medication Ordered: IV NS : initial bolus none -, then 1000 mL/hr (NOW). Given 10:01 09/17/2016 Kassandra Reed R.N. Medication Administered: VALIUM [IVP] (DIAZEPAM), Dose: 5 mg IVP over 1 minute(s), Site: #1 right AC. Medication Ordered: Valium IV 5 mg (HIGH ALERT MEDICATION, NOW). Start 11:00 09/17/2016 Kassandra Reed R.N., Stop 12:10 09/17/2016 Kassandra Reed R.N. Medication Administered: IV NS (SALINE), Dose: IV Fluids over 1 hour(s), Rate: 1000 mL/hr, Dispensed: 1000 mL bag, Site: #1 right AC. Medication Ordered: IV NS : initial bolus 1000 mL (1000 mL/hr), then none - for X1 (NOW). Given 11:09 09/17/2016 Kassandra Reed R.N. Medication Administered: VALIUM [IVP] (DIAZEPAM), Dose: 10 mg IVP over 2 minute(s), Site: #1 right AC. Medication Ordered: Valium IV 10 mg (HIGH ALERT MEDICATION, NOW). Given 12:17 09/17/2016 Fernando Lang R.N. Medication Administered: VALIUM [IVP] (DIAZEPAM), Dose: 20 mg IVP over 2 minute(s), Site: #1 right AC. Medication Ordered: Valium IV 20 mg (HIGH ALERT MEDICATION, NOW). Start 12:38 09/17/2016 Fernando Lang R.N., Stop 13:46 09/17/2016 Kassandra Reed R.N. Medication Administered: IV NS (SALINE), Dose: IV Fluids over 1 hour(s), Rate: 999 mL/hr, Dispensed: 1000 mL bag, Site: #1 right AC. Medication Ordered: IV NS : initial bolus 2L, then none - for X1 (NOW). Given 13:44 09/17/2016 Kassandra Reed R.N. Medication Administered: VALIUM [IVP] (DIAZEPAM), Dose: 20 mg IVP over 4 minute(s), Site: #1 right AC. Medication Ordered: Valium IV 20 mg (HIGH ALERT MEDICATION, NOW). Start 13:50 09/17/2016 Kassandra Reed R.N., Stop 14:47 09/17/2016 Kassandra Reed R.N. Medication Administered: IV NS (SALINE), Dose: IV Fluids over 1 hour(s), Rate: 999 mL/hr, Dispensed: 1000 mL bag, Site: #1 right AC. Medication Ordered: IV NS : initial bolus 2L, then none - for X1 (NOW). Given 14:47 09/17/2016 Kassandra Reed R.N. Medication Administered: VALIUM [IVP] (DIAZEPAM), Dose: 10 mg IVP, Site: #1 right AC. Medication Ordered: Valium IV 20 mg (HIGH ALERT MEDICATION, NOW). Start 15:25 09/17/2016 Kassandra Reed R.N., Stop 15:45 09/17/2016 Kassandra Reed R.N. Medication Administered: CEFTRIAXONE [IVPB], Dose: 1 gm IVPB over 20 minute(s), Rate: 150 mL/hr, Dispensed: 50 mL bag, Site: #1. Medication Ordered: Ceftriaxone IV 1 gm/50mL (NOW).
--- NOTE | 2016-09-21 12:40 | ED DISCHARGE INSTRUCTIONS ---
Patient: IRWIN DAMON General Instructions [facility] VisitID: [id number] [place] [address] 45y, F Registration Date/Time: 09/17/2016 09/17/2016 08:49 BP: 144/92. HR: 120. RR: 24. O2 saturation: 93%. Temp: 99.3 F. Pain level now: 0/10. Adjustment disorder with anxiety. Blood pressure normal. Oxygen saturation normal. Alcohol withdrawal with agitation (acute). Acute laryngitis. INSTRUCTIONS Warnings: GENERAL WARNINGS: Return or contact your physician immediately if your condition worsens or changes unexpectedly, if not improving as expected, or if other problems arise. Specifically return if pain, vomiting, bleeding, breathing difficulty or fever. Your Current Medications: CONTINUE TAKING THE FOLLOWING MEDICATIONS: Melatonin Extra Strength Oral. Prescription Medications: Valium 5 mg: take 1 orally every 8 hours as needed for anxiety. No refill. Substitution is permissible. (disp 3 tabs.) Follow-up: Return to the emergency department as needed. Follow up with your doctor in two days. Reason for referral: recheck today's concerns. Summary of care provided to patient via paper. Screening today revealed the patient's blood pressure to be in the normal range. The patient should follow up with a primary care provider for blood pressure management. Understanding of the discharge instructions verbalized by patient. ADDITIONAL INFORMATION Alcohol Withdrawal Alcohol withdrawal symptoms occur if you have been drinking steadily for at least several days, and your body gets used to the effect of alcohol. When you suddenly stop drinking (or, even just cut down your daily intake but continue to drink), you may develop alcohol withdrawal, also called the The usual symptoms last 3-4 days and include nervousness, shakiness, nausea, sweating, sleeplessness. In severe cases hallucinations (seeing things that are not there) and seizures can occur. Home Care: You will need plenty of rest and fluids over the next several days. Eat regular meals. Of course, do not drink any more alcohol. During this time, it is best that you stay with family or friends who can help and support you. You can also admit yourself to a residential detox program. Do not drive until all symptoms are gone and you are feeling better. If you were given sedative medication to reduce your symptoms, do not take it more often than prescribed and never take it with alcohol. Follow Up: Once you have gone through the withdrawal symptoms, you have fought half of the mercado. To avoid the risk of returning to your previous drinking pattern, it is essential that you get follow-up support and treatment. Alcoholics Anonymous offers support through a self-help fellowship. There are no dues or fees. See the Yellow Pages and call for time and place of meetings. www.aa.org [employer] offers support to families of alcohol users. 780.583.6378 www.al-anon.org National [place] On Alcoholism And Drug Dependence 045-904-0811 www.ncadd.org Residential alcohol detox programs are available. Check the Yellow Pages under Drug Abuse & Treatment Centers. Get Prompt Medical Attention if any of the following occur: Severe shakiness Hallucinations Seizure Fever over 100.5 F (38.0 C) oral Headache, confusion, extreme drowsiness, inability to awaken Increasing upper abdominal pain Repeated vomiting or vomiting blood Alcohol Withdrawal Seizure You have had a seizure today due to alcohol withdrawal.This occurs when you have been drinking steadily for at least several days, and your body gets used to the effect of alcohol.When you suddenly stop drinking (or, even just cut down your daily intake but continue to drink), you may develop withdrawal symptoms, also called the shakes or DTs. The usual symptoms of alcohol withdrawal last 3 to 4 days and include nervousness, shakiness, nausea, sweating, and sleeplessness.In severe cases hallucinations (seeing things that are not there) and seizures can occur. Standard seizure medicines may not prevent alcohol withdrawal seizures. Sedative medicines such as Ativan, Librium and Valium are more helpful. Home Care: You will need plenty of rest and fluids over the next several days. Eat regular meals.Do not drink any more alcohol.During this time, it is best that you stay with family or friends who can help and support you. You can also admit yourself to an outpatient, inpatient, or residential detox program. Do not drive until all symptoms are gone and you are feeling better. If you were given sedative medication to reduce your symptoms, do not take it more often than prescribed and never take it with alcohol. Heavy regular drinking combined with poor nutrition can lead to a thiamine deficiency and cause permanent brain damage.If you are unable to stop drinking, it is important that you take daily vitamins. Follow Up: Once you have gone through the withdrawal symptoms, you have fought half of the mercado. To avoid the risk of returning to your previous drinking pattern, it is essential that you get follow-up support and treatment. These resources can help you: Alcoholics Anonymous offers support through a self-help fellowship www.aa.org [employer] offers support to families of alcohol users 275-302-8511 www.al-anon.org National [place] on Alcoholism and Drug Dependence 611-979-7698 www.ncadd.org Search the Internet or check your phonebook for Drug Abuse & Treatment Centers. Return Promptly or contact your doctor if any of the following occurs: Severe shakiness Hallucinations Another seizure Fever of 100.4F (38.0C) or higher Headache, confusion, extreme drowsiness, inability to awaken Increasing upper abdominal pain Repeated vomiting or vomiting blood Adjustment Disorder An adjustment disorder is a condition that results from having a hard time coping with the normal stresses of life. You may feel you have too much to do and cant get it all done. These feelings may be triggered by divorce, job loss, someone you know dying, or by a positive event like getting a new job or getting . These feelings may interfere with your relationships at home and at work. With this condition, it is common to feel sad, guilty, hopeless and restless. These feelings may continue for weeks or months. It can be helpful to identify what is causing the additional stress and takes steps to get extra support. If new stressful events do not occur, it is likely that you will start feeling better within six months. Home Care: If you have been given a prescription for medicine, take it as directed. It helps to talk about your feelings and thoughts with family or friends that understand and support you. Follow Up with your doctor or therapist as advised by our staff. Let them know if this condition lasts more than six months without sign of improvement. For more information, contact the National [place] on Mental Illness at 687-049-2956 or visit www.di.org. Get Prompt Medical Attention if any of the following occur: Worsening depression or anxiety Feeling out of control Thoughts of harming yourself or another Being unable to care for yourself Viral Respiratory Illness [Adult] You have an Upper Respiratory Illness (URI) caused by a virus. This illness is contagious during the first few days. It is spread through the air by coughing and sneezing or by direct contact (touching the sick person and then touching your own eyes, nose or mouth). Most viral illnesses go away within 7-10 days with rest and simple home remedies. Sometimes, the illness may last for several weeks. Antibiotics will not kill a virus and are generally not prescribed for this condition. Home Care: 1) If symptoms are severe, rest at home for the first 2-3 days. When you resume activity, don't let yourself get too tired. 2) Avoid being exposed to cigarette smoke (yours or others). 3) Tylenol (acetaminophen) or ibuprofen (Advil, Motrin) will help fever, muscle aching and headache. (Persons under 18 with fever should not take aspirin since this may cause liver damage.) 4) Your appetite may be poor, so a light diet is fine. Avoid dehydration by drinking 6-8 glasses of fluids per day (water, soft drinks, juices, tea, soup). Extra fluids will help loosen secretions in the nose and lungs. 5) [id number] cold medicines will not shorten the length of time youre sick, but they may be helpful for the following symptoms: cough (Robitussin DM); sore throat (Chloraseptic lozenges or spray); nasal and sinus congestion (Actifed, Sudafed, Chlortrimeton). Follow Up with your doctor or as advised if you dont improve over the next week. Get Prompt Medical Attention if any of the following occur: -- Cough with lots of colored sputum (mucus) or blood in your sputum -- Chest pain, shortness of breath, wheezing or have trouble breathing -- Severe headache; face, neck or ear pain -- Fever over 100.4 F (38.0 C) for more than three days -- You cant swallow due to throat pain Diazepam Oral tablet What is this medicine? DIAZEPAM (dye AZ e julieth) is a benzodiazepine. It is used to treat anxiety and nervousness. It also can help treat alcohol withdrawal, relax muscles, and treat certain types of seizures. How should I use this medicine? Take this medicine by mouth with a glass of water. Follow the directions on the prescription label. If this medicine upsets your stomach, take it with food or milk. Take your doses at regular intervals. Do not take your medicine more often than directed. If you have been taking this medicine regularly for some time, do not suddenly stop taking it. You must gradually reduce the dose or you may get severe side effects. Ask your doctor or health health care social worker for advice. Even after you stop taking this medicine it can still affect your body for several days. Talk to your studio camera operator regarding the use of this medicine in children. Special care may be needed. What side effects may I notice from receiving this medicine? Side effects that you should report to your doctor or health health care social worker as soon as possible: allergic reactions like skin rash, itching or hives, swelling of the face, lips, or tongue angry, confused, depressed, other mood changes breathing problems feeling faint or lightheaded, falls muscle cramps problems with balance, talking, walking restlessness tremors trouble passing urine or change in the amount of urine unusually weak or tired Side effects that usually do not require medical attention (report to your doctor or health health care social worker if they continue or are bothersome): difficulty sleeping, nightmares dizziness, drowsiness, clumsiness, or unsteadiness, a hangover effect headache nausea, vomiting What may interact with this medicine? cimetidine grapefruit juice herbal or dietary supplements like kava kava, melatonin, Pablo's Wort, or valerian medicines for anxiety or sleeping problems, like alprazolam, lorazepam, or triazolam medicines for depression, mental problems or psychiatric disturbances medicines for HIV infection or AIDS prescription pain medicines rifampin, rifapentine, or rifabutin some medicines for seizures like carbamazepine, phenobarbital, phenytoin, or primidone What if I miss a dose? If you miss a dose, take it as soon as you can. If it is almost time for your next dose, take only that dose. Do not take double or extra doses. Where should I keep my medicine? Keep out of the reach of children. This medicine can be abused. Keep your medicine in a safe place to protect it from theft. Do not share this medicine with anyone. Selling or giving away this medicine is dangerous and against the law. Store at room temperature between 15 and 30 degrees C (59 and 86 degrees F). Protect from light. Keep container tightly closed. Throw away any unused medicine after the expiration date. What should I tell my health care provider before I take this medicine? They need to know if you have any of these conditions an alcohol or drug abuse problem bipolar disorder, depression, psychosis or other mental health condition glaucoma kidney or liver disease lung or breathing disease myasthenia gravis Parkinson's disease seizures or a history of seizures suicidal thoughts an unusual or allergic reaction to diazepam, other benzodiazepines, foods, dyes, or preservatives or trying to get breast-feeding What should I watch for while using this medicine? Visit your doctor or health health care social worker for regular checks on your progress. Your body can become dependent on this medicine. Ask your doctor or health health care social worker if you still need to take it. You may get drowsy or dizzy. Do not drive, use machinery, or do anything that needs mental alertness until you know how this medicine affects you. To reduce the risk of dizzy and fainting spells, do not stand or sit up quickly, especially if you are an older patient. Alcohol may increase dizziness and drowsiness. Avoid alcoholic drinks. Do not treat yourself for coughs, colds or allergies without asking your doctor or health health care social worker for advice. Some ingredients can increase possible side effects. You have been given the following additional information: Alcohol Withdrawal Alcohol Withdrawal Seizure Adjustment Disorder Uri, Viral, No Abx (Adult) Diazepam Oral tablet (Electronically signed by Corey Cedeno Dr. 09/21/2016 12:39)
== END 2016-09-18 11:30 | disposition home or self-care (01) ==
LOC: ED SRH 08:35 → TRANS SRH 14:33 → CC SRH 16:36
PROVIDERS: ADMIT Student in an Organized Health Care Education/Training Program
DX: F10.239 Alcohol dependence with withdrawal, unspecified (principal); F43.22 Adjustment disorder with anxiety; J04.0 Acute laryngitis; R50.81 Fever presenting with conditions classified elsewhere; R00.1 Bradycardia, unspecified; D64.9 Anemia, unspecified; D69.6 Thrombocytopenia, unspecified
CPT/HCPCS: 29244; 29247; 29250; 29263; 90004; 90047; 90074; 90100; 90154; 90159; 90469; 90616; 91022; 91320; 92031; 92720; 92760; 92761; 92762; 92763; 92764; 92765; 92766; 92767; 93070; 93140; 94060; 95059